=== PATIENT | female | born 1940 | race Caucasian/White ===

== ENCOUNTER → 2019-12-09 | Outpatient (CLI) | payer MEDICARE ==
--- NOTE | 2019-12-10 17:31 | ECHOF ---
Referral Reason:R01.1 Cardiac [place] MEASUREMENTS -------- HEIGHT: 162.6 cm WEIGHT: 60.3 kg BP: IVSd: 0.8 cm (0.6 - 1.1) LVIDd: 4.0 cm (3.9 - 5.3) LVPWd: 1.1 cm (0.6 - 1.1) IVSs: 1.4 cm LVIDs: 2.0 cm LVPWs: 1.7 cm LAESV Index (A-L): 19.76 ml/m Ao Diam: 2.3 cm (2.0 - 3.7) LA Diam: 2.6 cm (2.7 - 3.8) AV Cusp: 1.2 cm (1.5 - 2.6) EPSS: 0.9 cm MV E Jesus Manuel: 0.91 m/s MV DecT: 197 ms MV A Jesus Manuel: 1.14 m/s MV E/A Ratio: 0.80 AV maxP.33 mmHg AV meanP.96 mmHg AR PHT: 308 ms RAP: 5.00 mmHg RVSP: 40.69 mmHg MV EF SLOPE: 68.09 mm/s (70 - 150) MV EXCURSION: 10.93 mm (> 18.000) FINDINGS -------- Sinus rhythm. This was a technically good study. The left ventricular size is normal. There is mild concentric left ventricular hypertrophy. Overa ll left ventricular systolic function is normal with, an EF between 55 - 60 %. Increased LAP Grade 2 Diastolic Dysfunction. The right ventricle is normal in size. The left atrial size is normal. Normal LA size by volume 22+/-6 ml/m2. The right atrial size is normal. The aortic valve is trileaflet and appears structurally normal. There is mild aortic valve sclerosi s. Trace amount of aortic regurgitation. Peak/mean gradient across the Aortic Valve is 14.33mmHg / 9.96mmHg. The mitral valve is normal. The mitral valve leaflets are mildly thickened. Mild mitral regurgita tion is present. The tricuspid valve appears structurally normal. Mild tricuspid regurgitation present. There is m ild pulmonary hypertension. The right ventricular systolic pressure, as measured by Doppler, is 40. 69mmHg. There is no pulmonic regurgitation present. The aortic root size is normal. Normal inferior vena cava with normal inspiratory collapse consistent with estimated right atrial pre ssure of 5 mmHg. There is no pericardial effusion. CONCLUSIONS -------- 1. Sinus rhythm. 2. This was a technically good study. 3. The left ventricular size is normal. 4. There is mild concentric left ventricular hypertrophy. 5. Overall left ventricular systolic function is normal with, an EF between 55 - 60 %. 6. Increased LAP Grade 2 Diastolic Dysfunction. 7. The right ventricle is normal in size. 8. The left atrial size is normal. 9. Normal LA size by volume 22+/-6 ml/m2. 10. The right atrial size is normal. 11. The aortic valve is trileaflet and appears structurally normal. 12. There is mild aortic valve sclerosis. 13. Trace amount of aortic regurgitation. 14. Peak/mean gradient across the Aortic Valve is 14.33mmHg / 9.96mmHg. 15. The mitral valve is normal. 16. The mitral valve leaflets are mildly thickened. 17. Mild mitral regurgitation is present. 18. The tricuspid valve appears structurally normal. 19. Mild tricuspid regurgitation present. 20. There is mild pulmonary hypertension. 21. The right ventricular systolic pressure, as measured by Doppler, is 40.69mmHg. 22. There is no pulmonic regurgitation present. 23. The aortic root size is normal. 24. Normal inferior vena cava with normal inspiratory collapse consistent with estimated right atrial pressure of 5 mmHg. 25. There is no pericardial effusion. [employer] SUPERINTENDENT: Eve Jonas RDCS
== END | disposition home or self-care (01) ==
LOC: RADECHMAIN 11:42
PROVIDERS: ATTEND Family Medicine
DX: I08.1 Rheumatic disorders of both mitral and tricuspid valves (principal); I27.20 Pulmonary hypertension, unspecified
CPT/HCPCS: 93306

== ENCOUNTER → 2021-04-04 | Outpatient (CLI) | payer MEDICARE ==
--- NOTE | 2021-04-04 13:22 | MR ---
MR brain without contrast HISTORY: I 67.9 Multiplanar multisequence imaging through the brain, correlation to CT brain 04/25/2012. Patient's pre vious MRI is unavailable for correlation at the time of interpretation. There is restricted diffusion involving the radial aspect of the right occipital lobe, axial image #1 2. Multiple areas of encephalomalacia are present bilaterally with some associated gliosis, hyperinte nsity and inversion recovery T2-weighted sequences noted towards the watershed areas as well as conve xities. There is no hemorrhage or hydrocephalus. Cerebellopontine angles, corpus callosum, pituitary, cervical medullary junction are within normal limits. Right internal carotid artery is patent, suspe ct the left internal carotid arteries occluded, there is not a normal vascular flow void present at t his level. IMPRESSION: Subacute infarct medial right occipital lobe. Multiple bilateral chronic infarcts, left i nternal carotid artery occlusion
== END | disposition home or self-care (01) ==
LOC: RADMRIMAIN 10:16
PROVIDERS: ATTEND Psychiatry & Neurology Neurology
DX: G93.89 Other specified disorders of brain (principal); I65.23 Occlusion and stenosis of bilateral carotid arteries
CPT/HCPCS: 70551

== ENCOUNTER → 2021-04-29 | Outpatient (CLI) | payer MEDICARE ==
--- NOTE | 2021-04-29 14:41 | MR ---
EXAMINATION TYPE: MR angio head wo/neck wo/w con DATE OF EXAM: 04/29/2021 COMPARISON: 04/04/2021 HISTORY: Stenosis, CVA, weakness left side TECHNIQUE: Time of flight images focusing on the [place] were performed without contrast.. 2-D and 3-D postprocessing imaging is performed. FINDINGS: Motion degrades the images. There is encephalomalacia of the left occipital lobe. The intracranial right internal carotid artery is patent. There is patent right A1 and A2, M1 and M2 branches. The intracranial left internal carotid artery is completely occluded. Normal M1 and M2 and A1 and A2 branches are seen. The bilateral posterior inferior cerebellar arteries are patent. The upper vertebral arteries are pat ent and join to form a normal-appearing basilar artery. Bilateral P1 and P2 and posterior communicati ng arteries are patent. Bilateral superior cerebellar arteries are patent. The right common carotid artery arises normally from the right brachiocephalic artery and is unremark able and bifurcates normally into the right external carotid artery and internal carotid artery which are patent. The right vertebral artery arises normally from the right subclavian artery and is patent. The left common carotid artery is completely occluded beginning at the level of its origin at the aor tic arch through the bifurcation with occlusion of the entire left external carotid artery and left i nternal carotid artery through the [place]. The left vertebral artery arises normally from the left subclavian artery and is patent throughout it s course. Findings confirmed on 3-D imaging. IMPRESSION: 1. Occlusion of the left common carotid artery, internal carotid artery and external carotid arteries throughout their course. 2. Encephalomalacia of the left occipital lobe.
== END | disposition home or self-care (01) ==
LOC: RADMRIMAIN 10:39
PROVIDERS: ATTEND Psychiatry & Neurology Neurology
DX: I65.22 Occlusion and stenosis of left carotid artery (principal); G93.89 Other specified disorders of brain
CPT/HCPCS: 70544; 70549; A9585

== ENCOUNTER → 2021-08-27 | Outpatient (CLI) | payer MEDICARE ==
--- NOTE | 2021-08-27 15:48 | CT ---
EXAMINATION TYPE: CT lumbar spine wo con DATE OF EXAM: 08/27/2021 3:40 PM COMPARISON: None. HISTORY: Intervertebral disc degeneration, lumbar, pain, numbness LT leg. Hx lumbar spinal sx CT DLP: 415 mGycm Automated exposure control for dose reduction was used. Unenhanced CT of the lumbar spine was performed. Bone and soft tissue window settings are submitted as well as coronal and sagittal reconstructions. There are 5 lumbar-type vertebra. There is levoconvex scoliosis centered at L2 level. There is modera te to severe disc space narrowing with moderate spurring and vacuum disc phenomenon right L1-L2 and L 2-L3 levels. There is jccoqdiu-vt-poanvk disc space narrowing with vacuum disc phenomenon at left L4- L5 and L5-S1 levels. Slight grade 1 anterolisthesis L4 and L5 and grade 1 retrolisthesis of L1 on L2 and L2 on L3. Axial images at T12-L1 level are within normal limits. Axial images at the L1-L2 level show posterior mild/moderate broad-based disc bulge mildly effacing a nterior thecal sac, there is [id number] right-sided and anterior inferior neural foraminal narr owing. Axial images at the L2-L3 level show mild facet arthropathy and ligamentum flavum hypertrophy effacin g posterior lateral thecal sac, there is [id number] posterior spur disc complex effacing anteri or thecal sac. There is moderate right-sided neural foraminal narrowing. Axial images at the L3-L4 level show moderate to advanced facet arthropathy and ligament flavum hyper trophy effacing the social services assistant lateral thecal sac. There is broad base left paracentral disc protrusion e ffacing anterior thecal sac, there is moderate left and mild right-sided neural foraminal narrowing. Axial images at the L4-L5 level show moderate left greater than right facet arthropathy. There is bro ad-based left paracentral disc protrusion. There is effacement of the left lateral and left anterolat eral thecal sac. There is moderate to severe left-sided neural foraminal narrowing. Right sided neura l foramen is patent. Axial images at the L5-S1 level shows moderate facet arthropathy bilaterally. Spinal canal is preserv ed. Patent bilateral neural foramina. Mild to moderate calcified plaque of the aorta extends into branch vessels. Few diverticula in the le ft and proximal sigmoid colon are identified. IMPRESSION: Levoconvex scoliosis with multilevel degenerative changes in lumbar spine as detailed abo ve
== END | disposition home or self-care (01) ==
LOC: RADCTMAIN 15:15
PROVIDERS: ATTEND Family Medicine
DX: M51.36 Other intervertebral disc degeneration, lumbar region (principal); M41.86 Other forms of scoliosis, lumbar region
CPT/HCPCS: 72131

== ENCOUNTER 2022-01-03 14:40 | Emergency (ER) | payer MEDICARE ==
[2022-01-03] MEDS ORDERED: HYDROcodone/APAP 5-325MG 1 EACH TAB PO STA (16:04)
--- NOTE | 2022-01-03 16:11 | ED ---
General Adult HPI - General Chief complaint: Fall Stated complaint: Fall-L shoulder pain Time Seen by Provider: 01/03/22 16:00 Source: patient, family, RN notes reviewed, old records reviewed Mode of arrival: wheelchair Limitations: no limitations - History of Present Illness Initial comments: 81-year-old female alert and oriented, presents to the emergency room with complaints of falling today in the kitchen around 2pm. Patient states she does have a history of Parkinson's and has had frequent falls. She states she did not lose consciousness and did not hit her head. She did fall on her left arm and has pain with movement with significant bruising and an abrasion approximately 8 cm at shoulder. She also has an abrasion approximately 4 cm to the left temporal area. She denies any pain and no headache. Family at bedside states that she has had falls. She does not take any blood thinners. Family is concerned with patient's left arm pain. -: hour(s) (2) Location: left, upper extremity (shoulder) Quality: aching Consistency: intermittent Improves with: immobilization Worsens with: movement Associated Symptoms: other (abrasion to left episcopal) - Related Data Previous Rx's Medication Instructions Recorded HYDROcodone/APAP 5-325MG [[place] 1 tab PO Q6HR PRN 3 Days #12 tab 01/03/22 5-325] Allergies Allergy/AdvReac Type Severity Reaction Status Date / Time No Known Allergies Allergy Verified 01/03/22 14:59 Review of Systems ROS Statement: Those systems with pertinent positive or pertinent negative responses have been documented in the HPI. ROS Other: All systems not noted in ROS Statement are negative. Past Medical History Past Medical History: COPD, CVA/TIA, Hypertension History of Any Multi-Drug Resistant Organisms: None Reported Past Surgical History: Hysterectomy Additional Past Surgical History / Comment(s): cartoid arteries Past Psychological History: No Psychological Hx Reported Smoking Status: Never smoker Past Alcohol Use History: None Reported Past Drug Use History: None Reported General Exam Limitations: no limitations General appearance: alert, in no apparent distress Head exam: Present: other (4 cm abrasion to the left episcopal) Eye exam: Present: normal appearance, PERRL, EOMI. Absent: scleral icterus, conjunctival injection, nystagmus, periorbital swelling, periorbital tenderness ENT exam: Present: normal exam, mucous membranes moist Neck exam: Present: normal inspection, full ROM. Absent: tenderness, meningismus, lymphadenopathy, thyromegaly Respiratory exam: Present: normal lung sounds bilaterally. Absent: respiratory distress, wheezes, rales, rhonchi, stridor, chest wall tenderness, accessory muscle use, decreased breath sounds Cardiovascular Exam: Present: regular rate, normal rhythm GI/Abdominal exam: Present: soft. Absent: distended, tenderness Left Shoulder Exam: Present: tenderness, swelling, ecchymosis. Absent: tenderness over AC joint Upper Arm exam: Present: tenderness, swelling, abrasion (8 cm abrasion left upper arm), ecchymosis. Absent: full ROM Elbow exam: Present: normal inspection. Absent: tenderness Forearm Wrist exam: Present: normal inspection. Absent: tenderness Neuro motor exam: Present: wrist extension intact, thumb opposition intact, thumb IP flexion intact, thumb adduction intact, fingers 2-5 abduction intact Neurosensory exam: Present: radial nerve intact, ulnar nerve intact, median nerve intact Vascular: Present: normal capillary refill, radial pulse. Absent: vascular compromise Back exam: Present: normal inspection, full ROM. Absent: tenderness, CVA te nderness (R), CVA tenderness (L) Neurological exam: Present: alert, oriented X3 Expanded Patient oriented to: Present: person, place, time Speech: Present: fluid speech Cranial nerves: EOM's Intact: Normal, Gag Reflex: Normal, Tongue Deviation: Normal, Facial Sensation: Normal Cerebellar function: Heel to [place]: Normal Motor strength exam: RUE: 5, LUE: 5, RLE: 5, LLE: 5 Eye Response: (4) open spontaneously Motor Response: (6) obeys commands Verbal Response: (5) oriented Khushi Total: 15 Psychiatric exam: Present: normal affect, normal mood Skin exam: Present: warm, dry, normal color. Absent: cyanosis, diaphoretic, petechiae, pallor Course Vital Signs 01/03/22 01/03/22 15:00 16:50 Temperature 97.7 F Pulse Rate 62 60 Respiratory 20 18 Rate Blood Pressure 115/51 167/72 O2 Sat by Pulse 98 99 Oximetry Medical Decision Making - Medical Decision Making 81-year-old female alert and oriented presents after falling today in the kitchen onto her left arm while trying to put soup in the refrigerator. Patient states she does have a history of Parkinson's and has had frequent falls. She denies having any dizziness. She does not take any blood thinners but does take an aspirin a day. There is an abrasion to the left temporal area. There is also abrasions and bruising to her left shoulder. CT of the brain and C-spine show multiple bilateral cortical infarcts with cerebral atrophy. There is progression of the infarcts compared to old CT dated April 2012. There is no evidence of intracranial hemorrhage or mass effect. There is mild degenerative disc changes in the cervical spine but no fracture. X-ray of the shoulder shows a comminuted impacted humeral neck fracture with no dislocation. Patient is neurovascularly intact and has full range of motion of the elbow and wrist. Patient was placed in a sling and directed to follow up with orthopedics. She was given pain medication in the emergency room. Case discussed with Dr. Tiwari. Disposition Clinical Impression: Humeral fracture, Fall Disposition: HOME SELF-CARE Condition: Good Instructions (If sedation given, give patient instructions): Fall Prevention for Older Adults (ED), Proximal Humerus Fracture (ED) Additional Instructions: Rest, ice, wear sling until seen by orthopedics. You can take over the counter Motrin 400mg every 8 hours as needed for pain. You can take [place] as prescribed for severe pain as directed. Return to the emergency room with a new or concerning symptoms. Follow-up with your primary care doctor next week. Prescriptions: HYDROcodone/APAP 5-325MG [[place] 5-325] 1 tab PO Q6HR PRN 3 Days #12 tab PRN Reason: Pain Is patient prescribed a controlled substance at d/c from ED?: No When asked, does pt state using other controlled substances?: No If prescribed controlled substance>3 days was MAPS reviewed?: No If opioid is for acute pain is fill amount 7 days or less?: Yes If Rx opioid, was Start Talking consent form obtained?: Yes Referrals: Selwyn Reddy MD [Primary Care Provider] - 1-2 days Rahel Gonzalez DO [Doctor of Osteopathic Medicine] - 1-2 days Time of Disposition: 17:53
[2022-01-03 16:57] VITALS: RESP 18
[2022-01-03] MEDS ORDERED: BACITRACIN OINT 1 EACH PACKET TOPICAL ONE (17:27)
--- NOTE | 2022-01-03 17:41 | CT ---
EXAMINATION TYPE: CT brain lorie wo con DATE OF EXAM: 01/03/2022 COMPARISON: 04/25/2012 HISTORY: Fall. CT DLP: 1354.4 mGycm Automated exposure control for dose reduction was used. Images of the brain obtained without contrast. There is a 5 cm area of hypodensity left posterior temporal lobe. There is a 4 cm hypodensity left fr ontal lobe. There is large 8 x 4 cm area of hypodensity in the right posterior parietal lobe. There i s 3 cm hypodensity left parietal lobe cortex. There is no midline shift. There is no sign of intracra nial hemorrhage. Cervical vertebra have normal alignment. Posterior elements are intact. There is degenerative disc sp fatou narrowing at C5-6 with mild spurring. Facet joints are intact. There is multilevel hypertrophic c ervical facet arthropathy. The skull base is intact. There is normal aeration of the mastoid sinuses. IMPRESSION: Multiple bilateral cortical infarcts with cerebral atrophy. There is progression of the infarcts comp ared to old CT scan. No evidence of any significant new infarct. No evidence of intracranial hemorrha ge. No mass effect. Minor degenerative disc changes in the cervical spine. No fracture.
--- NOTE | 2022-01-03 17:42 | XR ---
EXAMINATION TYPE: XR shoulder complete LT DATE OF EXAM: 01/03/2022 COMPARISON: NONE HISTORY: Shoulder pain TECHNIQUE: 3 views FINDINGS: There is a comminuted impacted humeral neck fracture. There is no dislocation. Scapula is i ntact. There is approximate 8 mm of impaction. IMPRESSION: Acute impacted humeral neck fracture.
--- NOTE | 2022-01-03 17:46 | XR ---
EXAMINATION TYPE: XR humerus LT DATE OF EXAM: 01/03/2022 COMPARISON: NONE HISTORY: Fall. Pain TECHNIQUE: 3 view FINDINGS: There is comminuted impacted left humeral neck fracture. There is no dislocation. The elbow joint appears intact. There is no sign of elbow joint effusion. IMPRESSION: Acute impacted humeral neck fracture.
[2022-01-03 17:56] VITALS: BP 121/66; PULSE 62
[2022-01-03] MEDS ORDERED: ONDANSETRON 4 MG ODT STARTER PACK 2 TAB BTL PO STA (18:11)
[2022-01-03 18:44] VITALS: TEMP 97.8
== END 2022-01-03 18:44 | disposition home or self-care (01) ==
LOC: EC 14:40
DX: S42.212A Unspecified displaced fracture of surgical neck of left humerus, initial encounter for closed fracture (principal); I10 Essential (primary) hypertension; J44.9 Chronic obstructive pulmonary disease, unspecified; Z91.81 History of falling; Y93.89 Activity, other specified; Y92.000 Kitchen of unspecified non-institutional (private) residence as the place of occurrence of the external cause
CPT/HCPCS: 73030; 73060; 72125; 70450; 99284; S0119

== ENCOUNTER 2022-01-28 05:07 | Observation (INO) | payer MEDICARE ==
--- NOTE | 2022-01-28 05:44 | ED ---
Chest Pain HPI - General Chief Complaint: Chest Pain Stated Complaint: Chest Pain Time Seen by Provider: 01/28/22 05:40 Source: patient, EMS, RN notes reviewed, old records reviewed Mode of arrival: EMS Limitations: no limitations - History of Present Illness Initial Comments: This is a 81-year-old female with history of COPD TIA CVA hypertension and hi story of atherosclerosis with carotid endarterectomy coming with chest pain that woke her up from sleep today. Chest pain was significant anterior left sided heaviness with diaphoresis and shortness of breath. Pain did get improved with nitro per EMS. The patient remains pain-free upon arrival to the ER. No recent travel history no sick contacts no other significant complaints MD Complaint: chest pain -: hour(s) Onset: during rest, awoke with symptoms Pain Location: left chest Pain Radiation: none Severity: moderate Severity scale (1-10): 3 Quality: tightness Consistency: now resolved Improves With: nothing Worsens With: nothing Context: other (none) Anginal Symptoms: other (none) Other Symptoms: other (none) Treatments Prior to Arrival: none - Related Data Previous Rx's Medication Instructions Recorded HYDROcodone/APAP 5-325MG [[place] 1 tab PO Q6HR PRN 3 Days #12 tab 01/03/22 5-325] Allergies Allergy/AdvReac Type Severity Reaction Status Date / Time No Known Allergies Allergy Verified 01/03/22 14:59 Review of Systems ROS Statement: Those systems with pertinent positive or pertinent negative responses have been documented in the HPI. ROS Other: All systems not noted in ROS Statement are negative. EKG Findings - EKG Comments: EKG Findings:: EKG shows sinus rhythm 62 MA 225 QRS 100 QTc 402 Past Medical History Past Medical History: Atrial Fibrillation, COPD, CVA/TIA, Hypertension History of Any Multi-Drug Resistant Organisms: None Reported Past Surgical History: Hysterectomy Additional Past Surgical History / Comment(s): cartoid arteries Past Psychological History: No Psychological Hx Reported Smoking Status: Never smoker Past Alcohol Use History: None Reported Past Drug Use History: None Reported General Exam General appearance: alert, in no apparent distress Head exam: Present: atraumatic, normocephalic, normal inspection Eye exam: Present: normal appearance, PERRL, EOMI. Absent: scleral icterus, conjunctival injection, periorbital swelling ENT exam: Present: normal exam, mucous membranes moist Neck exam: Present: normal inspection. Absent: tenderness, meningismus, lymphadenopathy Respiratory exam: Present: normal lung sounds bilaterally. Absent: respiratory distress, wheezes, rales, rhonchi, stridor Cardiovascular Exam: Present: regular rate, normal rhythm, normal heart sounds. Absent: systolic murmur, diastolic murmur, rubs, gallop, clicks GI/Abdominal exam: Present: soft, normal bowel sounds. Absent: distended, tenderness, guarding, rebound, rigid Extremities exam: Present: normal inspection, full ROM, normal capillary refill. Absent: tenderness, pedal edema, joint swelling, calf tenderness Back exam: Present: normal inspection Neurological exam: Present: alert, oriented X3, CN II-XII intact Psychiatric exam: Present: normal affect, normal mood Skin exam: Present: warm, dry, intact, normal color. Absent: rash Course Vital Signs 01/28/22 05:18 Pulse Rate 66 Respiratory 18 Rate Blood Pressure 182/79 O2 Sat by Pulse 99 Oximetry - Reevaluation(s) Reevaluation #1: 01/28/22 06:50 Medical record is reviewed Reevaluation #2: 01/28/22 06:50 Patient's chest pain remains improved here in the ER Reevaluation #3: 01/28/22 06:50 Patient informed of results and questions answered - Consultations Consultation #1: Spoke with Dr. Reddy regarding admission he is agreeable Chest Pain MDM - MDM 81 female to the emergency department with history of atherosclerosis coming in with chest pain today. Chest pain with sweats that woke her up from sleep. Chest pain remains resolved after nitro the patient be admitted for chest pain observation Disposition Clinical Impression: Chest pain Disposition: ADMITTED IP TO THIS HOSP Condition: Undetermined Instructions (If sedation given, give patient instructions): Chest Pain (ED) Is patient prescribed a controlled substance at d/c from ED?: No Referrals: Selwyn Reddy MD [Primary Care Provider] - 1-2 days
[2022-01-28 06:17] LABS: Basophils # (A) 0.1 k/uL (0-0.2); Basophils % (A) 1 %; Eosinophils # (A) 0.3 k/uL (0-0.7); Eosinophils % (A) 2 %; HCT 34.3 % (34.0-46.0); HGB 11.4 gm/dL (11.4-16.0); Lymphocytes # (A) 2.7 k/uL (1.0-4.8); Lymphocytes % (A) 23 %; MCH 30.7 pg (25.0-35.0); MCHC 33.3 g/dL (31.0-37.0); MCV 92.1 fL (80.0-100.0); Mean Platelet Volume 7.7; Monocytes # (A) 0.9 k/uL (0-1.0); Monocytes % (A) 7 %; Neutrophils # (A) 7.5 k/uL (1.3-7.7); Neutrophils % (A) 65 %; Platelet Count 308 k/uL (150-450); RBC 3.73 m/uL (3.80-5.40); RDW 13.3 % (11.5-15.5); WBC 11.6 k/uL (3.8-10.6)
--- NOTE | 2022-01-28 06:22 | XR ---
EXAMINATION TYPE: XR chest 2V DATE OF EXAM: 01/28/2022 COMPARISON: NONE HISTORY: Chest pain TECHNIQUE: 2 views FINDINGS: Heart and mediastinum are normal. Lungs are clear. Diaphragm is normal. Bony thorax is inta ct. Thoracic aorta is atheromatous. IMPRESSION: No active cardiopulmonary disease.
[2022-01-28 06:27] LABS: Albumin 4.2 g/dL (3.5-5.0); INR 1.1 (<1.2); Magnesium 1.4 mg/dL (1.6-2.3); Partial Thromboplastin Time 23.9 sec (22.0-30.0); Potassium 4.1 mmol/L (3.5-5.1); Prothrombin Time 11.4 sec (9.0-12.0); Total Bilirubin 0.7 mg/dL (0.2-1.3); Total Protein 7.2 g/dL (6.3-8.2)
[2022-01-28] MEDS ORDERED: MORPHINE SULFATE 4 MG/ML SYRINGE IV PRN (06:52)
[2022-01-28] MEDS ORDERED: NITROGLYCERIN SL TABS 0.4 MG TAB SUBLINGUAL PRN (06:52)
[2022-01-28] MEDS ORDERED: ASPIRIN 81 MG PO STA (06:52)
--- NOTE | 2022-01-28 11:06 | P.CRDCN ---
History of Present Illness Consult date: 01/28/22 History of present illness: HISTORY OF PRESENT ILLNESS: This is a 81-year-old female with a past medical history significant for diabetes, hypothyroidism, and hyperlipidemia. 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 We have been asked to see the patient in consultation for chest pain. Patient examined at the bedside. The patient reports she recently fractured her left humerus. She reports that at 10 PM last night she began having chest discomfort. She also reports feeling slightly dizzy. She states the pain is worse with chest wall palpation. She is unsure if the pain is worse with deep inspiration. She denies any radiation of the pain. She denies any shortness of breath. * EKG reveals sinus mechanism with no signs of acute ischemia * Chest xray no active cardiopulmonary disease * Laboratory data: WBC 11.6. Hemoglobin 11.4. Platelet count 308. Sodium 137. Potassium 4.1. BUN 22. Creatinine 0.73. Magnesium 1.4. Troponin negative 2. * Current home cardiac medications include Crestor 20 mg at night, propanolol 60 g twice a day, aspirin 81 mg daily * Most recent echocardiogram obtained in 2019 revealed ejection fraction 55-60%, trace aortic regurgitation, mild MR, mild TR, and mild pulmonary hypertension REVIEW OF SYSTEMS: At the time of my exam: CONSTITUTIONAL: Denies fever or chills. HEENT: Denies blurred vision, vision changes, or eye pain. Denies hemoptysis CARDIOVASCULAR: Denies chest pain. Denies orthopnea. Denies PND. Denies palpitations RESPIRATORY: Denies shortness of breath. GASTROINTESTINAL: Denies abdominal pain. Denies nausea or vomiting. HEMATOLOGIC: Denies bleeding disorders. GENITOURINARY: Denies any blood in urine. SKIN: Denies pruitis. Denies rash. PHYSICAL EXAM: VITAL SIGNS: Reviewed. GENERAL: Well-developed in no acute distress. HEENT: Head is normocephalic. Pupils are equal, round. Sclerae anicteric. Mucous membranes of the mouth are moist. Neck supple. No JVD or thyromegaly LUNGS: Respirations even and unlabored. Lungs essentially clear to auscultation bilaterally. HEART: Regular rate and rhythm. S1 and S2 heard. Systolic murmur noted. ABDOMEN: Soft. Nondistended. Nontender. EXTREMITIES: Normal range of motion. No clubbing or cyanosis. Peripheral pulses intact. No lower extremity edema NEUROLOGIC: Awake and alert. Oriented x 3. ASSESSMENT: Chest pain, atypical, troponin negative 2 Recent left humerus fracture Diabetes Hypothyroidism Hyperlipidemia Hypertension PLAN: An acute coronary event has been ruled out Obtain 2-D echo to assess cardiac structure and function Resume home cardiac mutations Add lisinopril 10 mg daily for optimal blood pressure control Obtain d-dimer Further recommendations for inpatient course Nurse practitioner note has been reviewed by physician. Signing provider agrees with the documented findings, assessment, and plan of care. Past Medical History Past Medical History: Atrial Fibrillation, COPD, CVA/TIA, Hypertension History of Any Multi-Drug Resistant Organisms: None Reported Past Surgical History: Hysterectomy Additional Past Surgical History / Comment(s): cartoid arteries Past Psychological History: No Psychological Hx Reported Smoking Status: Never smoker Past Alcohol Use History: None Reported Past Drug Use History: None Reported Medications and Allergies Home Medications Medication Instructions Recorded Confirmed Type ALPRAZolam [Xanax] 0.25 mg PO DAILY PRN 01/28/22 01/28/22 History Aspirin EC [Ecotrin Low Dose] 81 mg PO DAILY 01/28/22 01/28/22 History Carbidopa-Levodopa 10-100 mg 1 tab PO QID 01/28/22 01/28/22 History [Sinemet 10-100] Diphenox-Atrop 2.5-0.025 mg 1 tab PO TID 01/28/22 01/28/22 History [Lomotil] Escitalopram [Lexapro] 10 mg PO DAILY 01/28/22 01/28/22 History HYDROcodone/APAP 5-325MG [[place] 1 tab PO Q4HR PRN 01/28/22 01/28/22 History 5-325] Levothyroxine Sodium [Synthroid] 88 mcg PO DAILY 01/28/22 01/28/22 History Montelukast [Singulair] 10 mg PO DAILY 01/28/22 01/28/22 History Naproxen 500 mg PO BID PRN 01/28/22 01/28/22 History Propranolol HCl 60 mg PO BID 01/28/22 01/28/22 History Rosuvastatin [Crestor] 20 mg PO HS 01/28/22 01/28/22 History metFORMIN HCL 500 mg PO BID 01/28/22 01/28/22 History Allergies Allergy/AdvReac Type Severity Reaction Status Date / Time No Known Allergies Allergy Verified 01/28/22 07:29 Physical Exam Vitals: Vital Signs Pulse Resp BP Pulse Ox 01/28/22 06:25 66 18 169/54 97 01/28/22 05:18 66 18 182/79 99 Intake and Output 01/27/22 01/28/22 01/28/22 22:59 06:59 14:59 Other: Weight 56.699 kg Results 01/28/22 05:51 01/28/22 05:51 Cardiac Enzymes 01/28/22 01/28/22 01/28/22 Range/Units 05:51 05:51 08:43 AST 32 (14-36) U/L Troponin I <0.012 <0.012 (0.000-0.034) ng/mL Coagulation 01/28/22 Range/Units 05:51 PT 11.4 (9.0-12.0) sec APTT 23.9 (22.0-30.0) sec CBC 01/28/22 Range/Units 05:51 WBC 11.6 H (3.8-10.6) k/uL RBC 3.73 L (3.80-5.40) m/uL Hgb 11.4 (11.4-16.0) gm/dL Hct 34.3 (34.0-46.0) % Plt Count 308 (150-450) k/uL Comprehensive Metabolic Panel 01/28/22 Range/Units 05:51 Sodium 137 (137-145) mmol/L Potassium 4.1 (3.5-5.1) mmol/L Chloride 103 (98-107) mmol/L Carbon Dioxide 26 (22-30) mmol/L BUN 22 H (7-17) mg/dL Creatinine 0.73 (0.52-1.04) mg/dL Glucose 107 H (74-99) mg/dL Calcium 10.0 (8.4-10.2) mg/dL AST 32 (14-36) U/L ALT 16 (4-34) U/L Alkaline Phosphatase 87 (38-126) U/L Total Protein 7.2 (6.3-8.2) g/dL Albumin 4.2 (3.5-5.0) g/dL Current Medications Generic Name Dose Route Start Last Admin Trade Name Freq PRN Reason Stop Dose Admin Aspirin 81 mg 01/28/22 09:15 Aspirin 81 Mg PO DAILY [facility] Atorvastatin Calcium 40 mg 01/28/22 21:00 Atorvastatin 40 Mg Tab PO HS [facility] Sodium Chloride 1,000 mls @ 20 mls/hr 01/28/22 07:00 Saline 0.9% IV 01/29/22 07:01 .Q24H [facility] Lisinopril 10 mg 01/28/22 09:15 Lisinopril 10 Mg Tab PO DAILY [facility] Morphine Sulfate 4 mg 01/28/22 06:52 Morphine Sulfate 4 Mg/Ml Syringe IV Q4HR PRN Chest Pain Nitroglycerin 0.4 mg 01/28/22 06:52 Nitroglycerin Sl Tabs 0.4 Mg Tab SUBLINGUAL Q5M PRN Chest Pain Propranolol HCl 60 mg 01/28/22 21:00 Propranolol 20 Mg Tab PO BID [facility] Sodium Chloride 10 ml 01/29/22 09:00 Sodium Chloride 0.9% Flush 10 Ml Syringe IV Q12HR [facility] Sodium Chloride 10 ml 01/29/22 06:55 Sodium Chloride 0.9% Flush 10 Ml Syringe IV DIRECTED PRN FLUSH Intake and Output 01/27/22 01/28/22 01/28/22 22:59 06:59 14:59 Other: Weight 56.699 kg 01/28/22 05:51 01/28/22 05:51
[2022-01-28] MEDS ORDERED: ALPRAZolam 0.25 MG TAB PO PRN (11:26)
[2022-01-28] MEDS: CARBIDOPA-LEVODOPA 10-100 MG 1 EACH TAB PO SCH ×3 (12:03→22:13)
[2022-01-28] MEDS: lisinopriL 10 MG TAB PO SCH (12:04)
[2022-01-28] MEDS: ASPIRIN 81 MG PO SCH (12:04)
[2022-01-28 14:06] VITALS: RESP 16
[2022-01-28] MEDS: SODIUM CHLORIDE 0.9% 1,000 ML IV SCH (14:12)
--- NOTE | 2022-01-28 14:19 | CT ---
EXAMINATION TYPE: CT angio chest DATE OF EXAM: 01/28/2022 COMPARISON: Chest x-ray earlier today HISTORY: r/o PE, elevated d dimer. Shortness of breath. CT DLP: 343 mGycm. Automated Exposure Control for Dose Reduction was Utilized. CONTRAST: CTA scan of the thorax is performed with IV Contrast, patient injected with 100 mL of Isovue 370, pul monary embolism protocol. MIP Images are created on CT scanner and reviewed. FINDINGS: LUNGS: Elevated left hemidiaphragm is redemonstrated. Some dependent atelectasis in the bilateral low er lobes. Mild posterior bibasilar linear scarring and/or atelectasis. Mild biapical pleural/parenchy mal scarring. No pleural effusion or pneumothorax seen bilaterally. No suspicious pulmonary nodules o r masses. MEDIASTINUM: There is satisfactory enhancement of the pulmonary artery and its branches, there is no CT evidence for pulmonary embolism. Prominent right and left pulmonary arteries suggesting underlying pulmonary artery hypertension. Satisfactory enhancement of the aorta without aneurysm or dissection. There is significant narrowing and eventual occlusion of the left common carotid artery shortly afte r its origin. Findings correlate with MRA neck study April 29, 2021. There are no greater than 1 cm hi lar or mediastinal lymph nodes. No cardiomegaly or pericardial effusion is seen. OTHER: Slight scoliotic curvature. Small hemangioma involving the left T12 vertebra thought present. IMPRESSION: No CT evidence for acute pulmonary embolism. No suspicious acute pulmonary process.
[2022-01-28] MEDS ORDERED: DIPHENOX-ATROP 2.5-0.025 MG 1 EACH TAB PO PRN (16:09)
[2022-01-28] MEDS: metFORMIN 500 MG TAB PO SCH (16:12)
[2022-01-28] MEDS: HYDROcodone/APAP 5-325MG 1 EACH TAB PO PRN (17:43)
[2022-01-28 17:50] LABS: Glucose,Whole Blood 149 mg/dL (75-99)
[2022-01-28] MEDS ORDERED: ATORVASTATIN 40 MG TAB PO SCH (21:00)
--- NOTE | 2022-01-28 21:59 | CT ---
EXAMINATION TYPE: CT brain wo con DATE OF EXAM: 01/28/2022 COMPARISON: 01/03/2022 HISTORY: headaches CT DLP: 1012.7 mGycm Automated exposure control for dose reduction was used. There is extensive hypodensity in the periventricular white matter. There is cortical hypodensity lef t frontal lobe and right parietal lobe and left posterior temporoparietal lobe related to multiple ol d infarcts. There is no mass effect or midline shift. There is no sign of intracranial hemorrhage. Th e calvarium is intact. Skull base is intact. Cerebellum is intact. 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 No acute intracranial abnormality. No change.
[2022-01-28] MEDS: PROPRANOLOL 20 MG TAB PO SCH (22:13)
[2022-01-28] MEDS: INSULIN ASPART (NovoLOG) 100 UNIT/ML VIAL SQ SCH (22:13)
[2022-01-28 22:14] LABS: Glucose,Whole Blood 119 mg/dL (75-99)
--- NOTE | 2022-01-28 22:32 | P.HPIM ---
History of Present Illness H&P Date: 01/28/22 Chief Complaint: Chest pain I'm rounding for Dr. Selwyn Reddy. This is a 81-year-old patient of Dr. Selwyn Reddy. Chronic stable medical conditions include cognitive impairment, diabetes, hypertension, hyperlipidemia, hypothyroid, Parkinson's disease, some left-sided weakness, recent left humerus fracture left the left arm in a sling. At her baseline uses a walker. Patient presents with chest pressure she describes in the upper part of the chest. Lasted from good 3 hours. My shortness of breath. Some dizziness. No perspiration. Had a significant associated headache that resolved. No precipitating factor. No radiation. Patient's activity is limited does use a walker. Review of systems: GEN.: Tired EYES: None HEENT: Decreased hearing NECK: None RESPIRATORY: None CARDIOVASCULAR: [As above GASTROINTESTINAL: None GENITOURINARY: None MUSCULOSKELETAL: Joint pains, left arm in a sling LYMPHATICS: None HEMATOLOGICAL: None PSYCHIATRY: Forgetful NEUROLOGICAL: [Does use a walker Past medical history to include: Atrial fibrillation, stroke, dementia, diabetes, hyperlipidemia, hypertension, osteomyelitis, Parkinson's disease, left humerus fracture anxiety Social history: Lives alone. Does have a walker. Did alcohol in the past stopped over 20 years ago. Nonsmoker. Family history: Diabetes, alcoholism Physical examination: VITAL SIGNS: 98, 68, 16, 123/80, 97% room air GENERAL: BMI 21.5, sitting edge answer bed, awake, slightly anxious. EYES: Pupils equal. Conjunctiva normal. HEENT: External appearance of nose and ears normal, oral cavity grossly normal. Decreased hearing NECK: JVD not raised; masses not palpable. HEART: First and second heart sounds are normal; no edema. LUNGS: Respiratory rate normal; clear to auscultation. ABDOMEN: Soft, nontender, liver spleen not palpable, no masses palpable. PSYCH: Able to answer simple questions. Slightly anxiousl. MUSCULOSKELETAL:No Clubbing/cyanosis;muscles-grossly intact. Evidence of OA in multiple joints. Left arm in a sling. NEUROLOGICAL: Cranial nerves grossly intact; no facial asymmetry, power and sensation grossly intact. LYMPHATICS: No lymph nodes palpable in the axilla and neck INVESTIGATIONS, reviewed in the clinical context: White count 11.6 hemoglobin 11.4 platelets 308 sodium 137 potassium 4.1 creatinine 0.73 Troponin I less than 0.012 EKG tracing personally reviewed by me-normal sinus rhythm. Minimal ST segment changes. Chest x-ray film personally reviewed by me: Some chronic changes CT angiogram chest: Elevated left hemidiaphragm. Some atelectasis. Negative for PE. Assessment and plan: -Possible unstable angina with multiple risk factors. Telemetry. Negative troponin. Cardiology consulted. 2-D echocardiogram. Aspirin. 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 Follow Accu-Cheks -Essential hypertension Zestril 10 mg a day. Propranolol 60 mg twice a day -Anxiety depression otherwise specified Lexapro 10 mg a day -Idiopathic Parkinson disorder Sinemet 10/100 one tablet 4 times a day -Hypothyroid Synthroid 88 g a day Resume home medications. Follow Accu-Cheks. Care was discussed with the granddaughter the bedside. 2-D echocardiogram pending. Serial cardiac enzymes. Past Medical History Past Medical History: Atrial Fibrillation, CVA/TIA, Dementia, Diabetes Mellitus, Hyperlipidemia, Hypertension, Musculoskeletal Disorder, Thyroid Disorder, Vascular Disorder Additional Past Medical History / Comment(s): NIDDM type II, parkinson's disesase, murmur, multiple CVAs/some L sided weakness, told strokes caused some dementia, PVD/bilateral caratid surgery, hypothyroid, recent L humurus fracture (pt is L handed). History of Any Multi-Drug Resistant Organisms: None Reported Past Surgical History: Back Surgery, Hysterectomy Additional Past Surgical History / Comment(s): Bilateral caratid endartectomies, back surgery, cataract removals. Past Anesthesia/Blood Transfusion Reactions: No Reported Reaction Smoking Status: Never smoker - Past Family History Father Additional Family Medical History / Comment(s): Alcoholism Mother Family Medical History: Diabetes Mellitus Additional Family Medical History / Comment(s): Mother when pt was 16 yrs old. Medications and Allergies Home Medications Medication Instructions Recorded Confirmed Type ALPRAZolam [Xanax] 0.25 mg PO DAILY PRN 01/28/22 01/28/22 History Aspirin EC [Ecotrin Low Dose] 81 mg PO DAILY 01/28/22 01/28/22 History Carbidopa-Levodopa 10-100 mg 1 tab PO QID 01/28/22 01/28/22 History [Sinemet 10-100] Diphenox-Atrop 2.5-0.025 mg 1 tab PO TID 01/28/22 01/28/22 History [Lomotil] Escitalopram [Lexapro] 10 mg PO DAILY 01/28/22 01/28/22 History HYDROcodone/APAP 5-325MG [[place] 1 tab PO Q4HR PRN 01/28/22 01/28/22 History 5-325] Levothyroxine Sodium [Synthroid] 88 mcg PO DAILY 01/28/22 01/28/22 History Montelukast [Singulair] 10 mg PO DAILY 01/28/22 01/28/22 History Naproxen 500 mg PO BID PRN 01/28/22 01/28/22 History Propranolol HCl 60 mg PO BID 01/28/22 01/28/22 History Rosuvastatin [Crestor] 20 mg PO HS 01/28/22 01/28/22 History metFORMIN HCL 500 mg PO BID 01/28/22 01/28/22 History Allergies Allergy/AdvReac Type Severity Reaction Status Date / Time No Known Allergies Allergy Verified 01/28/22 07:29 Physical Exam Vitals: Vital Signs Temp Pulse Pulse Resp BP BP Pulse Ox 01/28/22 14:05 98.0 F 68 16 123/80 97 01/28/22 12:19 74 18 151/61 99 01/28/22 06:25 66 18 169/54 97 01/28/22 05:18 66 18 182/79 99 Intake and Output 01/28/22 01/28/22 01/28/22 06:59 14:59 22:59 Other: # Voids 1 Weight 56.699 kg 56.699 kg Results CBC & Chem 7: 01/28/22 05:51 01/28/22 05:51 Labs: Abnormal Lab Results - Last 24 Hours (Table) 01/28/22 01/28/22 01/28/22 Range/Units 05:51 05:51 05:51 WBC 11.6 H (3.8-10.6) k/uL RBC 3.73 L (3.80-5.40) m/uL D-Dimer 3.60 H (<0.60) mg/L FEU BUN 22 H (7-17) mg/dL Glucose 107 H (74-99) mg/dL POC Glucose (mg/dL) (75-99) mg/dL Magnesium 1.4 L (1.6-2.3) mg/dL 01/28/22 01/28/22 Range/Units 17:49 22:12 WBC (3.8-10.6) k/uL RBC (3.80-5.40) m/uL D-Dimer (<0.60) mg/L FEU BUN (7-17) mg/dL Glucose (74-99) mg/dL POC Glucose (mg/dL) 149 H 119 H (75-99) mg/dL Magnesium (1.6-2.3) mg/dL Thrombosis Risk Factor Assmnt - Choose All That Apply Any of the Below Risk Factors Present?: Yes Other Risk Factors: Yes Each Risk Factor Represents 3 Points: Age 75 years or older Other congenital or acquired thrombophilia - If yes, enter type in comment: No Thrombosis Risk Factor Assessment Total Risk Factor Score: 3 Thrombosis Risk Factor Assessment Level: Moderate Risk
[2022-01-29] MEDS ORDERED: LEVOTHYROXINE 88 MCG TAB PO SCH (06:30)
[2022-01-29] MEDS: INSULIN ASPART (NovoLOG) 100 UNIT/ML VIAL SQ SCH ×2 (07:33→13:32)
[2022-01-29] MEDS: SODIUM CHLORIDE 0.9% 1,000 ML IV SCH (07:33)
[2022-01-29 07:40] LABS: Glucose,Whole Blood 113 mg/dL (75-99)
[2022-01-29] MEDS: HYDROcodone/APAP 5-325MG 1 EACH TAB PO PRN ×2 (07:45→13:35)
[2022-01-29] MEDS: CARBIDOPA-LEVODOPA 10-100 MG 1 EACH TAB PO SCH ×2 (07:45→13:35)
[2022-01-29] MEDS: ASPIRIN 81 MG PO SCH (07:45)
[2022-01-29] MEDS: PROPRANOLOL 20 MG TAB PO SCH (07:45)
[2022-01-29] MEDS: metFORMIN 500 MG TAB PO SCH (07:46)
[2022-01-29] MEDS: lisinopriL 10 MG TAB PO SCH (07:46)
[2022-01-29 08:26] VITALS: BP 124/63; PULSE 77; TEMP 97.7
[2022-01-29] MEDS ORDERED: ASPIRIN 325 MG TAB PO SCH (09:00)
[2022-01-29] MEDS ORDERED: MONTELUKAST 10 MG TAB PO SCH (09:00)
[2022-01-29] MEDS ORDERED: ESCITALOPRAM 10 MG TAB PO SCH (09:00)
--- NOTE | 2022-01-29 11:12 | ECHOF ---
Referral Reason: MEASUREMENTS -------- HEIGHT: 162.6 cm WEIGHT: 56.7 kg BP: IVSd: 0.9 cm (0.6 - 1.1) LVIDd: 2.5 cm (3.9 - 5.3) LVPWd: 0.9 cm (0.6 - 1.1) EDV(Teich): 23 ml IVSs: 1.4 cm LVIDs: 2.0 cm LVPWs: 1.1 cm %IVS Thck: 56 % ESV(Teich): 12 ml EF(Teich): 46 % %FS: 21 % SV(Teich): 10 ml EPSS: 1.8 cm MV E Jesus Manuel: 0.65 m/s MV DecT: 137 ms MV Dec Caroline: 4.7 m/s MV A Jesus Manuel: 1.11 m/s MV E/A Ratio: 0.59 MV PHT: 40 ms MR Vmax: 1.62 m/s MR maxP.50 mmHg AV Vmax: 0.81 m/s AV maxP.62 mmHg TR Vmax: 1.74 m/s TR maxP.14 mmHg RAP: 5.00 mmHg RVSP: 17.14 mmHg MV EF SLOPE: 41.03 mm/s (70 - 150) MV EXCURSION: 13.88 mm (> 18.000) FINDINGS -------- This was a technically difficult study with suboptimal views. Pt has broken left clavicle and is in a sling. The left ventricular size is normal. Left ventricular wall thickness is normal. Overall left vent ricular systolic function is normal with, an EF between 55 - 60 %. The right ventricle is normal in size. The left atrial size is normal. The right atrial size is normal. The aortic valve is trileaflet and appears structurally normal. The mitral valve is normal. There is trace mitral regurgitation. The tricuspid valve appears structurally normal. Trace tricuspid regurgitation present. Right alicia tricular systolic pressure is normal at < 35 mmHg. There is no pulmonic regurgitation present. The aortic root size is normal. Normal inferior vena cava with normal inspiratory collapse consistent with estimated right atrial pre ssure of 5 mmHg. There is no pericardial effusion. CONCLUSIONS -------- 1. Pt has broken left clavicle and is in a sling. 2. The left ventricular size is normal. 3. Left ventricular wall thickness is normal. 4. Overall left ventricular systolic function is normal with, an EF between 55 - 60 %. 5. There is trace mitral regurgitation. 6. Trace tricuspid regurgitation present. 7. There is no pericardial effusion. MANAGER LAUNDRY: Eve Jonas RDCS
--- NOTE | 2022-01-29 11:12 | P.PN ---
Subjective Progress Note Date: 01/29/22 HISTORY OF PRESENT ILLNESS: This is a 81-year-old female with a past medical history significant for diabetes, hypothyroidism, and hyperlipidemia. 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 We have been asked to see the patient in consultation for chest pain. Patient examined at the bedside. The patient reports she recently fractured her left humerus. She reports that at 10 PM last night she began having chest discomfort. She also reports feeling slightly dizzy. She states the pain is worse with chest wall palpation. She is unsure if the pain is worse with deep inspiration. She denies any radiation of the pain. She denies any shortness of breath. * EKG reveals sinus mechanism with no signs of acute ischemia * Chest xray no active cardiopulmonary disease * Laboratory data: WBC 11.6. Hemoglobin 11.4. Platelet count 308. Sodium 137. Potassium 4.1. BUN 22. Creatinine 0.73. Magnesium 1.4. Troponin negative 2. * Current home cardiac medications include Crestor 20 mg at night, propanolol 60 g twice a day, aspirin 81 mg daily * Most recent echocardiogram obtained in 2019 revealed ejection fraction 55-60%, trace aortic regurgitation, mild MR, mild TR, and mild pulmonary hypertension 01/29/2022 Patient examined this morning at the bedside. She denies chest pain or pressure. Denies SOB. CTA negative for PE. Dr. Pacheco reviewed echo and reports preserved LV function. PHYSICAL EXAM: VITAL SIGNS: Reviewed. GENERAL: Well-developed in no acute distress. HEENT: Head is normocephalic. Pupils are equal, round. Sclerae anicteric. Mucous membranes of the mouth are moist. Neck supple. No JVD or thyromegaly LUNGS: Respirations even and unlabored. Lungs essentially clear to auscultation bilaterally. HEART: Regular rate and rhythm. S1 and S2 heard. Systolic murmur noted. ABDOMEN: Soft. Nondistended. Nontender. EXTREMITIES: Normal range of motion. No clubbing or cyanosis. Peripheral pulses intact. No lower extremity edema NEUROLOGIC: Awake and alert. Oriented x 3. ASSESSMENT: Chest pain, atypical, troponin negative 2 Recent left humerus fracture Diabetes Hypothyroidism Hyperlipidemia Hypertension PLAN: Continue current cardiac medications Patient is stable from a cardiac standpoint We will sign off. Please reconsult if needed. Nurse practitioner note has been reviewed by physician. Signing provider agrees with the documented findings, assessment, and plan of care. Objective - Vital Signs Vital signs: Vital Signs Temp 97.7 F 01/29/22 07:29 Pulse 77 01/29/22 08:00 Resp 16 01/29/22 08:00 BP 124/63 01/29/22 07:29 Pulse Ox 100 01/29/22 07:29 Intake & Output 01/28/22 01/29/22 01/29/22 18:59 06:59 18:59 Weight 56.699 kg Other: Voiding Method Toilet # Voids 1 1 - Labs CBC & Chem 7: 01/28/22 05:51 01/28/22 05:51 Labs: Abnormal Lab Results - Last 24 Hours (Table) 01/28/22 01/28/22 01/29/22 Range/Units 17:49 22:12 07:27 POC Glucose (mg/dL) 149 H 119 H 113 H (75-99) mg/dL
[2022-01-29 12:06] LABS: Glucose,Whole Blood 206 mg/dL (75-99)
--- NOTE | 2022-01-29 14:27 | P.DS ---
Providers Date of admission: 01/28/22 06:52 Expected date of discharge: 01/29/22 Attending physician: Selwyn Reddy [facility] Course: Chief Complaint: Chest pain I'm rounding for Dr. Selwyn Reddy. This is a 81-year-old patient of Dr. Selwyn Reddy. Chronic stable medical conditions include cognitive impairment, diabetes, hypertension, hyperlipidemia, hypothyroid, Parkinson's disease, some left-sided weakness, recent left humerus fracture left the left arm in a sling. At her baseline uses a walker. Patient presents with chest pressure she describes in the upper part of the chest. Lasted from good 3 hours. My shortness of breath. Some dizziness. No perspiration. Had a significant associated headache that resolved. No precipitating factor. No radiation. Patient's activity is limited does use a walker. Today: No further episodes of chest pain. Seen by cardiology. Probably muscular skeletal. Discussed with daughter the bedside. CT brain: Multiple old infarcts Past medical history to include: Atrial fibrillation, stroke, dementia, diabetes, hyperlipidemia, hypertension, osteomyelitis, Parkinson's disease, left humerus fracture anxiety Social history: Lives alone. Does have a walker. Did alcohol in the past stopped over 20 years ago. Nonsmoker. Family history: Diabetes, alcoholism Physical examination: VITAL SIGNS: 97.7, 77, 16, 124/63, 100% room air GENERAL: Sitting up in a chair, awake, comfortable EYES: Pupils equal. Conjunctiva normal. HEENT: External appearance of nose and ears normal, oral cavity grossly normal. Decreased hearing NECK: JVD not raised; masses not palpable. HEART: First and second heart sounds are normal; no edema. LUNGS: Respiratory rate normal; clear to auscultation. ABDOMEN: Soft, nontender, liver spleen not palpable, no masses palpable. PSYCH: Able to answer simple questions. Slightly anxiousl. MUSCULOSKELETAL:No Clubbing/cyanosis;muscles-grossly intact. Evidence of OA in multiple joints. Left arm in a sling. NEUROLOGICAL: Cranial nerves grossly intact; no facial asymmetry, power and sensation grossly intact. INVESTIGATIONS, reviewed in the clinical context: CT brain: Multiple old infarcts 2-D echocardiogram: EF 55-60%. White count 11.6 hemoglobin 11.4 platelets 308 sodium 137 potassium 4.1 creatinine 0.73 Troponin I less than 0.012 EKG tracing personally reviewed by me-normal sinus rhythm. Minimal ST segment changes. Chest x-ray film personally reviewed by me: Some chronic changes CT angiogram chest: Elevated left hemidiaphragm. Some atelectasis. Negative for PE. 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 Follow Accu-Cheks -Essential hypertension Zestril 10 mg a day. Propranolol 60 mg twice a day -Anxiety depression otherwise specified Lexapro 10 mg a day -Idiopathic Parkinson disorder Sinemet 10/100 one tablet 4 times a day -Hypothyroid Synthroid 88 g a day Disposition: Home Plan - Discharge Summary Discharge Rx Participant: No New Discharge Prescriptions: New lisinopriL [Zestril] 10 mg PO DAILY #30 tab Continue ALPRAZolam [Xanax] 0.25 mg PO DAILY PRN PRN Reason: Anxiety Aspirin EC [Ecotrin Low Dose] 81 mg PO DAILY Escitalopram [Lexapro] 10 mg PO DAILY Levothyroxine Sodium [Synthroid] 88 mcg PO DAILY metFORMIN HCL 500 mg PO BID Montelukast [Singulair] 10 mg PO DAILY Rosuvastatin [Crestor] 20 mg PO HS Carbidopa-Levodopa 10-100 mg [Sinemet 10-100 mg] 1 tab PO QID Diphenox-Atrop 2.5-0.025 mg [Lomotil] 1 tab PO TID Naproxen 500 mg PO BID PRN PRN Reason: Pain Propranolol HCl 60 mg PO BID HYDROcodone/APAP 5-325MG [[place] 5-325] 1 tab PO Q4HR PRN PRN Reason: Pain Discharge Medication List ALPRAZolam [Xanax] 0.25 mg PO DAILY PRN 01/28/22 [History] Aspirin EC [Ecotrin Low Dose] 81 mg PO DAILY 01/28/22 [History] Carbidopa-Levodopa 10-100 mg [Sinemet 10-100 mg] 1 tab PO QID 01/28/22 [History] Diphenox-Atrop 2.5-0.025 mg [Lomotil] 1 tab PO TID 01/28/22 [History] Escitalopram [Lexapro] 10 mg PO DAILY 01/28/22 [History] HYDROcodone/APAP 5-325MG [[place] 5-325] 1 tab PO Q4HR PRN 01/28/22 [History] Levothyroxine Sodium [Synthroid] 88 mcg PO DAILY 01/28/22 [History] Montelukast [Singulair] 10 mg PO DAILY 01/28/22 [History] Naproxen 500 mg PO BID PRN 01/28/22 [History] Propranolol HCl 60 mg PO BID 01/28/22 [History] Rosuvastatin [Crestor] 20 mg PO HS 01/28/22 [History] metFORMIN HCL 500 mg PO BID 01/28/22 [History] lisinopriL [Zestril] 10 mg PO DAILY #30 tab 01/29/22 [Rx] Follow up Appointment(s)/Referral(s): Tomas Pacheco MD [STAFF PHYSICIAN] - 3 Weeks (Office will call with appointment time and date.) Selwyn Reddy MD [Primary Care Provider] - 1-2 days [facility], [NON-STAFF] - 1-2 Days Patient Instructions/Handouts: Chest Pain (ED) Discharge Disposition: HOME SELF-CARE
[2022-01-29 14:30] LABS: Chol/HDL Ratio 2.73 Ratio
== END 2022-01-29 13:50 | disposition home or self-care (01) ==
LOC: EC 05:07 → 6NMEDSUR 06:52
PROVIDERS: ADMIT Family Medicine; ATTEND Family Medicine
DX: R07.89 Other chest pain (principal); I48.91 Unspecified atrial fibrillation; J44.9 Chronic obstructive pulmonary disease, unspecified; I10 Essential (primary) hypertension; E03.9 Hypothyroidism, unspecified; I69.311 Memory deficit following cerebral infarction; G20 Parkinson's disease; F02.80 Dementia in other diseases classified elsewhere, unspecified severity, without behavioral disturbance, psychotic disturbance, mood disturbance, and anxiety; F01.50 Vascular dementia, unspecified severity, without behavioral disturbance, psychotic disturbance, mood disturbance, and anxiety; E78.5 Hyperlipidemia, unspecified; E11.9 Type 2 diabetes mellitus without complications; R53.1 Weakness; M86.9 Osteomyelitis, unspecified; I08.1 Rheumatic disorders of both mitral and tricuspid valves; R51.9 Headache, unspecified; F41.9 Anxiety disorder, unspecified; R26.9 Unspecified abnormalities of gait and mobility; Z79.84 Long term (current) use of oral hypoglycemic drugs; Z79.82 Long term (current) use of aspirin; Z79.890 Hormone replacement therapy; Z79.899 Other long term (current) drug therapy; Z90.710 Acquired absence of both cervix and uterus; Z98.41 Cataract extraction status, right eye; Z98.42 Cataract extraction status, left eye; Z96.1 Presence of intraocular lens; Z98.890 Other specified postprocedural states; Z81.1 Family history of alcohol abuse and dependence; Z83.3 Family history of diabetes mellitus
CPT/HCPCS: 99285; 96374; 36415; 93005; 85379; 83880; 80061; 80053; 83735; 84484; 85025; 85610; 85730; 71046; 70450; 71275; G0378 ×2; C8929; J2270; Q9967; 93306

== ENCOUNTER 2024-01-20 12:35 | Emergency (ER) | payer MEDICARE ==
--- NOTE | 2024-01-20 12:53 | ED ---
General Adult HPI - General Chief complaint: Extremity Injury, Lower Stated complaint: L Hip Pain Time Seen by Provider: 01/20/24 12:45 Source: patient, RN notes reviewed, old records reviewed Mode of arrival: EMS Limitations: no limitations - History of Present Illness Initial comments: This is an 83-year-old female who presents to the emergency department stating that 2 days ago she slipped off the toilet and landed on her left buttocks. Patient states since then the area is sore and so she decided to come in today to get it checked out. Patient denies any head trauma patient denies any neck trauma. Patient Nuys any upper extremity trauma. Patient has any chest or back pain. Patient states she is able to ambulate. Patient's only complaint is the lateral aspect of her left buttocks. - Related Data Home Medications Medication Instructions Recorded Confirmed ALPRAZolam [Xanax] 0.25 mg PO DAILY PRN 01/28/22 01/28/22 Aspirin EC [Ecotrin Low Dose] 81 mg PO DAILY 01/28/22 01/28/22 Carbidopa-Levodopa 10-100 mg 1 tab PO QID 01/28/22 01/28/22 [Sinemet 10-100 mg] Diphenox-Atrop 2.5-0.025 mg 1 tab PO TID 01/28/22 01/28/22 [Lomotil] Escitalopram [Lexapro] 10 mg PO DAILY 01/28/22 01/28/22 HYDROcodone/APAP 5-325MG [[place] 1 tab PO Q4HR PRN 01/28/22 01/28/22 5-325] Levothyroxine Sodium [Synthroid] 88 mcg PO DAILY 01/28/22 01/28/22 Montelukast [Singulair] 10 mg PO DAILY 01/28/22 01/28/22 Naproxen 500 mg PO BID PRN 01/28/22 01/28/22 Propranolol HCl [Inderal] 60 mg PO BID 01/28/22 01/28/22 Rosuvastatin [Crestor] 20 mg PO HS 01/28/22 01/28/22 metFORMIN HCL 500 mg PO BID 01/28/22 01/28/22 Previous Rx's Medication Instructions Recorded lisinopriL [Zestril] 10 mg PO DAILY #30 tab 01/29/22 Allergies Allergy/AdvReac Type Severity Reaction Status Date / Time No Known Allergies Allergy Verified 01/28/22 07:29 Review of Systems ROS Statement: Those systems with pertinent positive or pertinent negative responses have been documented in the HPI. ROS Other: All systems not noted in ROS Statement are negative. Past Medical History Past Medical History: Atrial Fibrillation, CVA/TIA, Dementia, Diabetes Mellitus, Hyperlipidemia, Hypertension, Musculoskeletal Disorder, Thyroid Disorder, Vascular Disorder Additional Past Medical History / Comment(s): NIDDM type II, parkinson's disesase, murmur, multiple CVAs/some L sided weakness, told strokes caused some dementia, PVD/bilateral caratid surgery, hypothyroid, recent L humurus fracture (pt is L handed). History of Any Multi-Drug Resistant Organisms: None Reported Past Surgical History: Back Surgery, Hysterectomy Additional Past Surgical History / Comment(s): Bilateral caratid endartectomies, back surgery, cataract removals. Past Anesthesia/Blood Transfusion Reactions: No Reported Reaction Past Psychological History: Anxiety, Depression Smoking Status: Never smoker Past Alcohol Use History: None Reported Past Drug Use History: None Reported - Past Family History Father Additional Family Medical History / Comment(s): Alcoholism Mother Family Medical History: Diabetes Mellitus Additional Family Medical History / Comment(s): Mother when pt was 16 yrs old. General Exam - General Exam Comments Initial Comments: GENERAL: Patient is well-developed and well-nourished. Patient is nontoxic and well- hydrated and is in mild distress. ENT: Neck is soft and supple. No significant lymphadenopathy is noted. Oropharynx is clear. Moist mucous membranes. Neck has full range of motion without eliciting any pain. EYES: The sclera were anicteric and conjunctiva were pink and moist. Extraocular movements were intact and pupils were equal round and reactive to light. Eyelids were unremarkable. PULMONARY: Unlabored respirations. Good breath sounds bilaterally. No audible rales rhonchi or wheezing was noted. CARDIOVASCULAR: There is a regular rate and rhythm without any murmurs gallops or rubs. ABDOMEN: Soft and nontender with normal bowel sounds. SKIN: Patient has a bruise on the left buttocks NEUROLOGIC: Patient is alert and oriented x3. Cranial nerves II through XII are grossly intact. Motor and sensory are also intact. Normal speech, volume and content. Symmetrical smile. MUSCULOSKELETAL: Normal extremities with adequate strength and full range of motion. Patient has full range of motion of the left and right hip however there is some tenderness with external rotation. Patient does have a bruise on the left buttocks region LYMPHATICS: No significant lymphadenopathy is noted PSYCHIATRIC: Normal psychiatric evaluation. Limitations: no limitations Course Vital Signs 01/20/24 12:45 Temperature 98.7 F Pulse Rate 76 Respiratory 18 Rate Blood Pressure 167/81 O2 Sat by Pulse 96 Oximetry Medical Decision Making - Medical Decision Making Was pt. sent in by a medical professional or institution (, PA, CHAMBER [employer], urgent care, hospital, or longterm...) When possible be specific @ -No Did you speak to anyone other than the patient for history (EMS, parent, family, police, friend...)? What history was obtained from this source @ -EMS gave some of the history Did you review nursing and triage notes (agree or disagree)? Why? @ -I reviewed and agree with nursing and triage notes Were old charts reviewed (outside hosp., previous admission, EMS record, old EKG, old radiological studies, urgent care reports/EKG's, longterm records)? Report findings @ -No old charts were reviewed Differential Diagnosis (chest pain, altered mental status, abdominal pain women, abdominal pain men, vaginal bleeding, weakness, fever, dyspnea, syncope, he adache, dizziness, GI bleed, back pain, seizure, CVA, palpatations, mental health, musculoskeletal)? @ -Differential Musculoskeletal Muscular strain, contusion, ligament sprain, fracture, arthritis, septic arthritis, bursitis, cellulitis, muscle spasm, nerve compression, DVT, arterial occlusion, herpes zoster, electrolyte abnormality, tumor.... This is not meant to be in all inclusive list EKG interpreted by me (3pts min.). @ -As above X-rays interpreted by me (1pt min.). @ -X-ray of the hip and pelvis show no acute abnormality or dislocation CT interpreted by me (1pt min.). @ -None done U/S interpreted by me (1pt. min.). @ -None done What testing was considered but not performed or refused? (CT, X-rays, U/S, labs)? Why? @ -None What meds were considered but not given or refused? Why? @ -None Did you discuss the management of the patient with other professionals (professionals i.e. , PA, CHAMBER MAGIST[employer], lab, RT, psych nurse, professor of social work, talent development analyst, teacher, juvenile detention officer, case aide)? Give summary @ -No Was smoking cessation discussed for >3mins.? @ -No Was critical care preformed (if so, how long)? @ -No Were there social determinants of health that impacted care today? How? (Homelessness, low income, unemployed, alcoholism, drug addiction, transportation, low edu. Level, literacy, decrease access to med. care, [facility], rehab)? @ -No Was there de-escalation of care discussed even if they declined (Discuss DNR or withdrawal of care, Hospice)? DNR status @ -No What co-morbidities impacted this encounter? (DM, HTN, Smoking, COPD, CAD, Cancer, CVA, ARF, Chemo, Hep., AIDS, mental health diagnosis, sleep apnea, morbid obesity)? @ -None Was patient admitted / discharged? Hospital course, mention meds given and route, prescriptions, significant lab abnormalities, going to OR and other pertinent info. @ -Patient received a Toradol shot while in the emergency department and was able to ambulate Undiagnosed new problem with uncertain prognosis? @ -No Drug Therapy requiring intensive monitoring for toxicity (Heparin, Nitro, Insulin, Cardizem)? @ -No Were any procedures done? @ -No Diagnosis/symptom? @ -Contusion buttocks Acute, or Chronic, or Acute on Chronic? @ -Acute Uncomplicated (without systemic symptoms) or Complicated (systemic symptoms)? @ -Uncomplicated Side effects of treatment? @ -No Exacerbation, Progression, or Severe Exacerbation? @ -No Poses a threat to life or bodily function? How? (Chest pain, [place], [place], pneumonia, PE, COPD, DKA, ARF, appy, cholecystitis, CVA, Diverticulitis, Homicidal, Suicidal, threat to staff... and all critical care pts) @ -No Disposition Clinical Impression: Contusion of buttock Disposition: HOME SELF-CARE Instructions (If sedation given, give patient instructions): Contusion in Adults (ED) Is patient prescribed a controlled substance at d/c from ED?: No Referrals: Selwyn Reddy MD [Primary Care Provider] - 1-2 days Time of Disposition: 13:30
[2024-01-20] MEDS: KETOROLAC 15 MG/ML 1 ML VIAL IM STA (12:55)
[2024-01-20 13:21] VITALS: RESP 18; TEMP 98.7
--- NOTE | 2024-01-20 13:21 | XR ---
EXAMINATION TYPE: XR Hip LT and AP Pelvis DATE OF EXAM: 01/20/2024 CLINICAL HISTORY: pain TECHNIQUE: AP and frogleg views of the left hip are obtained. In view of the pelvis COMPARISON: None. FINDINGS: There is no acute fracture/dislocation evident. The joint space appears mildly narrowed. The overlying soft tissue appears unremarkable. IMPRESSION: 1. There is no acute fracture or dislocation.ICD 10 NO FRACTURE, INITIAL EVALUATION
[2024-01-20 14:31] VITALS: BP 124/76; PULSE 78
== END 2024-01-20 14:20 | disposition home or self-care (01) ==
LOC: EC 12:35
DX: S30.0XXA Contusion of lower back and pelvis, initial encounter (principal); E03.9 Hypothyroidism, unspecified; E11.36 Type 2 diabetes mellitus with diabetic cataract; E11.51 Type 2 diabetes mellitus with diabetic peripheral angiopathy without gangrene; E78.5 Hyperlipidemia, unspecified; I10 Essential (primary) hypertension; I48.91 Unspecified atrial fibrillation; F41.9 Anxiety disorder, unspecified; F32.A Depression, unspecified; Z79.84 Long term (current) use of oral hypoglycemic drugs; Z79.82 Long term (current) use of aspirin; Z79.890 Hormone replacement therapy; Z79.899 Other long term (current) drug therapy; Z86.73 Personal history of transient ischemic attack (TIA), and cerebral infarction without residual deficits; X58.XXXA Exposure to other specified factors, initial encounter
CPT/HCPCS: 73502; 99283; 96372; J1885

== ENCOUNTER → 2024-05-18 | Outpatient (CLI) | payer MEDICARE ==
--- NOTE | 2024-05-18 11:17 | CT ---
EXAMINATION TYPE: CT brain wo con CT DLP: 1047.1 mGycm, Automated exposure control for dose reduction was used. DATE OF EXAM: 05/18/2024 11:10 AM COMPARISON: Prior CT Brain from 01/28/2022 . CLINICAL INDICATION:Female, 83 years old with history of S09.90XA HEAD TRAUMA R29.6 FALL S24.109A SPI NE TRA, head trauma, fall today TECHNIQUE: Brain: Multiple axial CT images of the brain were obtained without IV contrast. . Coronal and sagitta l reformats reviewed. FINDINGS: Brain: Extra-axial spaces: No abnormal extra-axial fluid collections. Ventricular system: Dilatation in proportion to cerebral atrophy. Cerebral parenchyma: Cerebral atrophy. No acute intraparenchymal hemorrhage or mass effect. The mckeon -white junction is well differentiated. Scattered hypoattenuating areas are seen within the white mat ter. Encephalomalacia identified with thin the right frontoparietal lobes, left frontal lobe, left o ccipital lobe, and left parietal lobe. Cerebellum: Unremarkable. Mass effect: No evidence of midline shift. Intracranial vasculature: Atherosclerotic calcifications of the intracranial vessels. Soft tissues: Normal. Calvarium/osseous structures: No depressed skull fracture. Paranasal sinuses and mastoid air cells: Clear Visualized orbits: Bilateral aphakia. Bilateral scleral calcifications. IMPRESSION: 1. No acute intracranial process. No significant change from prior examination. 2. Multiple old infarcts redemonstrated along with nonspecific white matter changes likely secondary to chronic microangiopathy.
--- NOTE | 2024-05-18 11:21 | CT ---
EXAMINATION TYPE: CT thoracic spine wo con CT DLP: 649.3 mGycm, Automated exposure control for dose reduction was used. DATE OF EXAM: 05/18/2024 11:10 AM COMPARISON: CT chest 01/28/2022, CT lumbar spine 08/27/2021. CLINICAL INDICATION:Female, 83 years old with history of S09.90XA HEAD TRAUMA R29.6 FALL S24.109A SPI NE TRA; PHH, fall today, thoracic trauma TECHNIQUE: Axial images of the thoracic spine were obtained without contrast. Coronal and sagittal re formats were performed. FINDINGS: The thoracic vertebral bodies have preserved heights and alignment. Mild dextrocurvature o f the thoracolumbar spine. Intervertebral discs and osseous structures have normal appearance. Mild degenerative disc disease at L1-L2. I do not see any evidence of extradural defects nor significant spinal canal narrowing at any thoraci c vertebral body level. Aortic valvular calcifications. Moderate coronary artery calcifications involving the LAD. IMPRESSION: No evidence of acute thoracic spinal fracture.
== END | disposition home or self-care (01) ==
LOC: RADCTMAIN 10:29
PROVIDERS: ATTEND Family Medicine
DX: S09.90XA Unspecified injury of head, initial encounter (principal); S24.109A Unspecified injury at unspecified level of thoracic spinal cord, initial encounter; R29.6 Repeated falls
CPT/HCPCS: 70450; 72128

== ENCOUNTER 2024-05-19 14:46 | Emergency (ER) | payer MEDICARE ==
--- NOTE | 2024-05-19 15:19 | ED ---
General Adult HPI - General Chief complaint: Nausea/Vomiting/Diarrhea Stated complaint: parkinson's Time Seen by Provider: 05/19/24 14:59 Source: patient, EMS Mode of arrival: EMS Limitations: no limitations - History of Present Illness Initial comments: This patient is an 83-year-old woman who presents to have evaluation related to her Parkinson's disease. The patient states that she has had worsening tremor over the past number of days. She reports that she also has had a little bit of stress recently. She has not had any change in medications. She denies feeling as if she has an infection. She states that she did have a fall last week rela brandan to the Parkinson's disease but she was seen by her primary physician and had x-ray. She denies pain currently. -: days(s) Severity scale (1-10): 0 Consistency: constant Improves with: none Worsens with: none Associated Symptoms: nausea/vomiting Treatments Prior to Arrival: none - Related Data Home Medications Medication Instructions Recorded Confirmed ALPRAZolam [Xanax] 0.25 mg PO DAILY PRN 01/28/22 01/28/22 Aspirin EC [Ecotrin Low Dose] 81 mg PO DAILY 01/28/22 01/28/22 Carbidopa-Levodopa 10-100 mg 1 tab PO QID 01/28/22 01/28/22 [Sinemet 10-100 mg] Diphenox-Atrop 2.5-0.025 mg 1 tab PO TID 01/28/22 01/28/22 [Lomotil] Escitalopram [Lexapro] 10 mg PO DAILY 01/28/22 01/28/22 HYDROcodone/APAP 5-325MG [[place] 1 tab PO Q4HR PRN 01/28/22 01/28/22 5-325] Levothyroxine Sodium [Synthroid] 88 mcg PO DAILY 01/28/22 01/28/22 Montelukast [Singulair] 10 mg PO DAILY 01/28/22 01/28/22 Naproxen 500 mg PO BID PRN 01/28/22 01/28/22 Propranolol HCl [Inderal] 60 mg PO BID 01/28/22 01/28/22 Rosuvastatin [Crestor] 20 mg PO HS 01/28/22 01/28/22 metFORMIN HCL 500 mg PO BID 01/28/22 01/28/22 Previous Rx's Medication Instructions Recorded lisinopriL [Zestril] 10 mg PO DAILY #30 tab 01/29/22 Nitrofurantoin Monohyd/M-Cryst 100 mg PO Q12HR #6 cap 05/19/24 [Macrobid] Allergies Allergy/AdvReac Type Severity Reaction Status Date / Time No Known Allergies Allergy Verified 01/28/22 07:29 Review of Systems ROS Statement: Those systems with pertinent positive or pertinent negative responses have been documented in the HPI. ROS Other: All systems not noted in ROS Statement are negative. Constitutional: Denies: fever, chills, weakness Eyes: Denies: vision change ENT: Denies: throat pain, congestion Respiratory: Denies: cough, dyspnea Cardiovascular: Denies: chest pain, edema, syncope Gastrointestinal: Reports: nausea. Denies: abdominal pain, vomiting, diarrhea Genitourinary: Denies: dysuria, hematuria Musculoskeletal: Denies: back pain Skin: Denies: rash Neurological: Denies: headache, weakness, numbness Past Medical History Past Medical History: Atrial Fibrillation, CVA/TIA, Dementia, Diabetes Mellitus, Hyperlipidemia, Hypertension, Musculoskeletal Disorder, Thyroid Disorder, Vascular Disorder Additional Past Medical History / Comment(s): NIDDM type II, parkinson's disesase, murmur, multiple CVAs/some L sided weakness, told strokes caused some dementia, PVD/bilateral caratid surgery, hypothyroid, recent L humurus fracture (pt is L handed). History of Any Multi-Drug Resistant Organisms: None Reported Past Surgical History: Back Surgery, Hysterectomy Additional Past Surgical History / Comment(s): Bilateral caratid endartectomies, back surgery, cataract removals. Past Anesthesia/Blood Transfusion Reactions: No Reported Reaction Past Psychological History: Anxiety, Depression Smoking Status: Never smoker Past Alcohol Use History: None Reported Past Drug Use History: None Reported - Past Family History Father Additional Family Medical History / Comment(s): Alcoholism Mother Family Medical History: Diabetes Mellitus Additional Family Medical History / Comment(s): Mother when pt was 16 yrs old. General Exam Limitations: no limitations General appearance: alert, in no apparent distress Head exam: Present: atraumatic, normocephalic Eye exam: Present: normal appearance. Absent: scleral icterus, conjunctival injection ENT exam: Present: normal oropharynx Neck exam: Present: normal inspection Respiratory exam: Present: normal lung sounds bilaterally. Absent: respiratory distress, wheezes, rales, rhonchi, stridor, accessory muscle use Cardiovascular Exam: Present: regular rate, normal rhythm, normal heart sounds. Absent: systolic murmur, diastolic murmur, rubs, gallop GI/Abdominal exam: Present: soft. Absent: distended, tenderness, guarding, rebound, rigid, mass Extremities exam: Present: normal inspection, normal capillary refill. Absent: pedal edema, calf tenderness Back exam: Present: normal inspection. Absent: CVA tenderness (R), CVA tenderness (L) Neurological exam: Present: alert, oriented X3, motor sensory deficit. Absent: CN II-XII intact Skin exam: Present: warm, dry, intact, normal color. Absent: rash Course Vital Signs 05/19/24 05/19/24 05/19/24 14:49 16:34 18:20 Temperature 98.5 F 98.0 F Pulse Rate 72 62 68 Respiratory 17 19 19 Rate Blood Pressure 132/50 131/51 142/59 O2 Sat by Pulse 95 98 98 Oximetry EKG Findings - EKG Results: EKG: interpreted by ERMD, sinus rhythm (Rate 68 bpm), normal axis, normal QRS - Blocks, [place], Hypertrophy, ST Abn: AV and intraventricular conduction: 1 AV block Medical Decision Making - Medical Decision Making Was pt. sent in by a medical professional or institution (HARRY Genao, SOIL SPECIALIST, urgent care, hospital, or half-way...) When possible be specific @ -[No] Did you speak to anyone other than the patient for history (EMS, parent, family, police, friend...)? What history was obtained from this source @ -[Family did provide some history Did you review nursing and triage notes (agree or disagree)? Why? @ -[I reviewed and agree with nursing and triage notes] Were old charts reviewed (outside hosp., previous admission, EMS record, old EKG, old radiological studies, urgent care reports/EKG's, half-way records)? Report findings @ -[No old charts were reviewed] Differential Diagnosis (chest pain, altered mental status, abdominal pain women, abdominal pain men, vaginal bleeding, weakness, fever, dyspnea, syncope, headache, dizziness, GI bleed, back pain, seizure, CVA, palpatations, mental health, musculoskeletal)? @ -[Differential Weakness: Hypoglycemia, shock, sepsis, hyponatremia, anemia, infection, HI, ETOH, adverse medicine reaction, overdose, stroke, this is not meant to be an all-inclusive list. EKG interpreted by me (3pts min.). @ -[I interpreted as above] X-rays interpreted by me (1pt min.). @ -[None done] CT interpreted by me (1pt min.). @ -[None done] U/S interpreted by me (1pt. min.). @ -[None done] What testing was considered but not performed or refused? (CT, X-rays, U/S, labs)? Why? @ -[None] What meds were considered but not given or refused? Why? @ -[None] Did you discuss the management of the patient with other professionals (professionals i.e. , PA, SOIL SPECIALIST, lab, RT, psych nurse, social media manager, slot service specialist, teacher, bank secrecy act officer, casework supervisor)? Give summary @ -[No] Was smoking cessation discussed for >3mins.? @ -[No] Was critical care preformed (if so, how long)? @ -[No] Were there social determinants of health that impacted care today? How? (Homelessness, low income, unemployed, alcoholism, drug addiction, transportation, low edu. Level, literacy, decrease access to med. care, half-way, rehab)? @ -[No] Was there de-escalation of care discussed even if they declined (Discuss DNR or withdrawal of care, Hospice)? DNR status @ -[No] What co-morbidities impacted this encounter? (DM, HTN, Smoking, COPD, CAD, Cancer, CVA, ARF, Chemo, Hep., AIDS, mental health diagnosis, sleep apnea, morbid obesity)? @ -[Parkinson's disease Was patient admitted / discharged? Hospital course, mention meds given and route, prescriptions, significant lab abnormalities, going to OR and other pertinent info. @ -[Patient is an 83-year-old woman with Parkinson's disease who presents to evaluation for worsening of her underlying symptoms. Patient having some stress at home which may contribute. Also does have urinary tract infection. At the end of workup patient states she would like to try going home with medication. Discussed appropriate further care and follow-up Undiagnosed new problem with uncertain prognosis? @ -[No] Drug Therapy requiring intensive monitoring for toxicity (Heparin, Nitro, Insulin, Cardizem)? @ -[No] Were any procedures done? @ -[No] Diagnosis/symptom? @ -[ generalized weakness Parkinson's disease, chronic Urinary tract infection Acute, or Chronic, or Acute on Chronic? @ -[default] Uncomplicated (without systemic symptoms) or Complicated (systemic symptoms)? @ -[Complicated by generalized weakness Side effects of treatment? @ -[No] Exacerbation, Progression, or Severe Exacerbation? @ -[No] Poses a threat to life or bodily function? How? (Chest pain, USA, HI, pneumonia, PE, COPD, DKA, ARF, appy, cholecystitis, CVA, Diverticulitis, Homicidal, Suicidal, threat to staff... and all critical care pts) @ -[No] - Lab Data Result diagrams: 05/19/24 15:36 05/19/24 15:36 Lab Results 05/19/24 05/19/24 05/19/24 Range/Units 15:36 15:36 15:36 WBC 8.2 (3.8-10.6) k/uL RBC 4.67 (3.80-5.40) m/uL Hgb 13.8 (11.4-16.0) gm/dL Hct 42.8 (34.0-46.0) % MCV 91.6 (80.0-100.0) fL MCH 29.6 (25.0-35.0) pg MCHC 32.3 (31.0-37.0) g/dL RDW 13.0 (11.5-15.5) % Plt Count 214 (150-450) k/uL MPV 8.3 Neutrophils % 65 % Lymphocytes % 21 % Monocytes % 8 % Eosinophils % 3 % Basophils % 1 % Neutrophils # 5.3 (1.3-7.7) k/uL Lymphocytes # 1.8 (1.0-4.8) k/uL Monocytes # 0.6 (0-1.0) k/uL Eosinophils # 0.2 (0-0.7) k/uL Basophils # 0.1 (0-0.2) k/uL Sodium 140 (137-145) mmol/L Potassium 4.4 (3.5-5.1) mmol/L Chloride 107 (98-107) mmol/L Carbon Dioxide 26 (22-30) mmol/L Anion Gap 7 mmol/L BUN 28 H (7-17) mg/dL Creatinine 0.85 (0.52-1.04) mg/dL Est GFR (CKD-EPI)AfAm 74 (>60 ml/min/1.73 sqM) Est GFR (CKD-EPI)NonAf 64 (>60 ml/min/1.73 sqM) Glucose 149 H (74-99) mg/dL Plasma Lactic Acid Jose (0.7-2.0) mmol/L Calcium 9.8 (8.4-10.2) mg/dL Magnesium 1.9 (1.6-2.3) mg/dL Total Bilirubin 0.7 (0.2-1.3) mg/dL AST 29 (14-36) U/L ALT 7 (4-34) U/L Alkaline Phosphatase 67 (38-126) U/L Total Protein 7.2 (6.3-8.2) g/dL Albumin 4.4 (3.5-5.0) g/dL Urine Color Colorless Urine Appearance Clear (Clear) Urine pH 6.5 (5.0-8.0) Ur Specific [place] 1.025 (1.001-1.035) Urine Protein Negative (Negative) Urine Glucose (UA) 4+ H (Negative) Urine Ketones Negative (Negative) Urine Blood Negative (Negative) Urine Nitrite Negative (Negative) Urine Bilirubin Negative (Negative) Urine Urobilinogen <2.0 (<2.0) mg/dL Ur Leukocyte Esterase Moderate H (Negative) Urine RBC 4 (0-5) /hpf Urine WBC 23 H (0-5) /hpf Ur Squamous Epith Cells 3 (0-4) /hpf 05/19/24 Range/Units 15:36 WBC (3.8-10.6) k/uL RBC (3.80-5.40) m/uL Hgb (11.4-16.0) gm/dL Hct (34.0-46.0) % MCV (80.0-100.0) fL MCH (25.0-35.0) pg MCHC (31.0-37.0) g/dL RDW (11.5-15.5) % Plt Count (150-450) k/uL MPV Neutrophils % % Lymphocytes % % Monocytes % % Eosinophils % % Basophils % % Neutrophils # (1.3-7.7) k/uL Lymphocytes # (1.0-4.8) k/uL Monocytes # (0-1.0) k/uL Eosinophils # (0-0.7) k/uL Basophils # (0-0.2) k/uL Sodium (137-145) mmol/L Potassium (3.5-5.1) mmol/L Chloride (98-107) mmol/L Carbon Dioxide (22-30) mmol/L Anion Gap mmol/L BUN (7-17) mg/dL Creatinine (0.52-1.04) mg/dL Est GFR (CKD-EPI)AfAm (>60 ml/min/1.73 sqM) Est GFR (CKD-EPI)NonAf (>60 ml/min/1.73 sqM) Glucose (74-99) mg/dL Plasma Lactic Acid Jose 1.9 (0.7-2.0) mmol/L Calcium (8.4-10.2) mg/dL Magnesium (1.6-2.3) mg/dL Total Bilirubin (0.2-1.3) mg/dL AST (14-36) U/L ALT (4-34) U/L Alkaline Phosphatase (38-126) U/L Total Protein (6.3-8.2) g/dL Albumin (3.5-5.0) g/dL Urine Color Urine Appearance (Clear) Urine pH (5.0-8.0) Ur Specific [place] (1.001-1.035) Urine Protein (Negative) Urine Glucose (UA) (Negative) Urine Ketones (Negative) Urine Blood (Negative) Urine Nitrite (Negative) Urine Bilirubin (Negative) Urine Urobilinogen (<2.0) mg/dL Ur Leukocyte Esterase (Negative) Urine RBC (0-5) /hpf Urine WBC (0-5) /hpf Ur Squamous Epith Cells (0-4) /hpf Disposition Clinical Impression: Urinary tract infection Disposition: HOME SELF-CARE Condition: Good Instructions (If sedation given, give patient instructions): Urinary Tract Infection in Women (ED) Prescriptions: Nitrofurantoin Monohyd/M-Cryst [Macrobid] 100 mg PO Q12HR #6 cap Is patient prescribed a controlled substance at d/c from ED?: No Referrals: Selwyn Reddy MD [Primary Care Provider] - 1-2 days
[2024-05-19 15:57] LABS: Basophils # (A) 0.1 k/uL (0-0.2); Basophils % (A) 1 %; Eosinophils # (A) 0.2 k/uL (0-0.7); Eosinophils % (A) 3 %; HCT 42.8 % (34.0-46.0); HGB 13.8 gm/dL (11.4-16.0); Lymphocytes # (A) 1.8 k/uL (1.0-4.8); Lymphocytes % (A) 21 %; MCH 29.6 pg (25.0-35.0); MCHC 32.3 g/dL (31.0-37.0); MCV 91.6 fL (80.0-100.0); Mean Platelet Volume 8.3; Monocytes # (A) 0.6 k/uL (0-1.0); Monocytes % (A) 8 %; Neutrophils # (A) 5.3 k/uL (1.3-7.7); Neutrophils % (A) 65 %; Platelet Count 214 k/uL (150-450); RBC 4.67 m/uL (3.80-5.40); WBC 8.2 k/uL (3.8-10.6)
[2024-05-19 16:03] LABS: Appearance,Urine Clear (Clear); Bilirubin,Urine Negative (Negative); Blood,Urine Negative (Negative); Color,Urine Colorless; Glucose,Urine (UA) 4+ (Negative); Ketones,Urine Negative (Negative); Leukocyte Esterase,Urine Moderate (Negative); Nitrite,Urine Negative (Negative); PH, Urine 6.5 (5.0-8.0); Protein,Urine Negative (Negative); RBC,Urine 4 /hpf (0-5); Specific Gravity,Urine 1.025 (1.001-1.035); Squamous Epithelial Cell,Urine 3 /hpf (0-4); Urobilinogen,Urine <2.0 mg/dL (<2.0); WBC,Urine 23 /hpf (0-5)
[2024-05-19 16:07] LABS: ALT 7 U/L (4-34); AST 29 U/L (14-36); African American GFR (CKD) 74 (>60 ml/min/1.73 sqM); Albumin 4.4 g/dL (3.5-5.0); Alkaline Phosphatase 67 U/L (38-126); Anion Gap 7 mmol/L; Blood Urea Nitrogen 28 mg/dL (7-17); Calcium 9.8 mg/dL (8.4-10.2); Carbon Dioxide 26 mmol/L (22-30); Chloride 107 mmol/L (98-107); Glucose 149 mg/dL (74-99); Magnesium 1.9 mg/dL (1.6-2.3); Non-African American GFR(CKD) 64 (>60 ml/min/1.73 sqM); Potassium 4.4 mmol/L (3.5-5.1); Sodium 140 mmol/L (137-145); Total Bilirubin 0.7 mg/dL (0.2-1.3); Total Protein 7.2 g/dL (6.3-8.2)
[2024-05-19 16:37] VITALS: RESP 19
[2024-05-19] MEDS: SODIUM CHLORIDE 0.9% 1,000 ML IV ONE (17:05)
[2024-05-19] MEDS: NITROFURANTOIN MONOHYD/M-CRYST 100 MG CAP PO STA (18:13)
[2024-05-19 18:33] VITALS: BP 142/59; PULSE 68; TEMP 98
== END 2024-05-19 18:33 | disposition home or self-care (01) ==
LOC: EC 14:46
DX: N39.0 Urinary tract infection, site not specified (principal); Z86.73 Personal history of transient ischemic attack (TIA), and cerebral infarction without residual deficits
CPT/HCPCS: 36415; 80053; 81001; 83605; 83735; 85025; 93005; 96360; 99284

== ENCOUNTER 2024-07-17 17:35 | Emergency (ER) | payer MEDICARE ==
--- NOTE | 2024-07-17 18:31 | ED ---
General Adult HPI - General Chief complaint: Fall Stated complaint: fall/back pain Time Seen by Provider: 07/17/24 17:35 Source: patient, EMS, RN notes reviewed, old records reviewed Mode of arrival: EMS Limitations: no limitations - History of Present Illness Initial comments: This is an 83-year-old female who presents to the emergency department after she had fallen down. Patient states she hurt her lower back on the right. Patient states it does hurt to move and twist. Patient states she did not hit her head she is not on any blood thinners. Patient does state the right side of her neck does hurt as well. Patient denies any chest pain however her posterior rib cage is an area she points to as being tender. Patient denies any extremity pain. Patient states she is she fell because she slipped. - Related Data Home Medications Medication Instructions Recorded Confirmed ALPRAZolam [Xanax] 0.25 mg PO DAILY PRN 01/28/22 01/28/22 Aspirin EC [Ecotrin Low Dose] 81 mg PO DAILY 01/28/22 01/28/22 Carbidopa-Levodopa 10-100 mg 1 tab PO QID 01/28/22 01/28/22 [Sinemet 10-100 mg] Diphenox-Atrop 2.5-0.025 mg 1 tab PO TID 01/28/22 01/28/22 [Lomotil] Escitalopram [Lexapro] 10 mg PO DAILY 01/28/22 01/28/22 HYDROcodone/APAP 5-325MG [[place] 1 tab PO Q4HR PRN 01/28/22 01/28/22 5-325] Levothyroxine Sodium [Synthroid] 88 mcg PO DAILY 01/28/22 01/28/22 Montelukast [Singulair] 10 mg PO DAILY 01/28/22 01/28/22 Naproxen 500 mg PO BID PRN 01/28/22 01/28/22 Propranolol HCl [Inderal] 60 mg PO BID 01/28/22 01/28/22 Rosuvastatin [Crestor] 20 mg PO HS 01/28/22 01/28/22 metFORMIN HCL 500 mg PO BID 01/28/22 01/28/22 Previous Rx's Medication Instructions Recorded lisinopriL [Zestril] 10 mg PO DAILY #30 tab 01/29/22 Nitrofurantoin Monohyd/M-Cryst 100 mg PO Q12HR #6 cap 05/19/24 [Macrobid] Allergies Allergy/AdvReac Type Severity Reaction Status Date / Time No Known Allergies Allergy Verified 07/17/24 17:50 Review of Systems ROS Statement: Those systems with pertinent positive or pertinent negative responses have been documented in the HPI. ROS Other: All systems not noted in ROS Statement are negative. Past Medical History Past Medical History: Atrial Fibrillation, CVA/TIA, Dementia, Diabetes Mellitus, Hyperlipidemia, Hypertension, Musculoskeletal Disorder, Thyroid Disorder, Vascular Disorder Additional Past Medical History / Comment(s): NIDDM type II, parkinson's disesase, murmur, multiple CVAs/some L sided weakness, told strokes caused some dementia, PVD/bilateral caratid surgery, hypothyroid, recent L humurus fracture (pt is L handed). History of Any Multi-Drug Resistant Organisms: None Reported Past Surgical History: Back Surgery, Hysterectomy Additional Past Surgical History / Comment(s): Bilateral caratid endartectomies, back surgery, cataract removals. Past Anesthesia/Blood Transfusion Reactions: No Reported Reaction Past Psychological History: Anxiety, Depression Smoking Status: Never smoker Past Alcohol Use History: None Reported Past Drug Use History: None Reported - Past Family History Father Additional Family Medical History / Comment(s): Alcoholism Mother Family Medical History: Diabetes Mellitus Additional Family Medical History / Comment(s): Mother when pt was 16 yrs old. General Exam - General Exam Comments Initial Comments: GENERAL: Patient is well-developed and well-nourished. Patient is nontoxic and well- hydrated and is in mild distress. ENT: Neck is soft and supple. No significant lymphadenopathy is noted. Oropharynx is clear. Moist mucous membranes. I remove the patient's c-collar and she does have some tenderness on the right side in the area of trapezius muscle EYES: The sclera were anicteric and conjunctiva were pink and moist. Extraocular movements were intact and pupils were equal round and reactive to light. Eyelids were unremarkable. PULMONARY: Unlabored respirations. Good breath sounds bilaterally. No audible rales rhonchi or wheezing was noted. CARDIOVASCULAR: There is a regular rate and rhythm without any murmurs gallops or rubs. Patient has some tenderness in the lower right rib cage area posteriorly. Patient also has some tenderness in the lower back on the right ABDOMEN: Soft and nontender with normal bowel sounds. No palpable organomegaly was noted. There is no palpable pulsatile mass. SKIN: Skin is clear with no lesions or rashes and otherwise unremarkable. NEUROLOGIC: Patient is alert and oriented x3. Cranial nerves II through XII are grossly intact. Motor and sensory are also intact. Normal speech, volume and content. Symmetrical smile. MUSCULOSKELETAL: Normal extremities with adequate strength and full range of motion. No lower extremity swelling or edema. No calf tenderness. LYMPHATICS: No significant lymphadenopathy is noted PSYCHIATRIC: Normal psychiatric evaluation. Limitations: no limitations Course Vital Signs 07/17/24 07/17/24 17:39 19:22 Temperature 97.9 F Pulse Rate 67 63 Respiratory 16 16 Rate Blood Pressure 122/60 115/76 O2 Sat by Pulse 95 95 Oximetry Medical Decision Making - Medical Decision Making Was pt. sent in by a medical professional or institution (, [facility]Y, COLLATING MACHINE OPERATOR, urgent care, hospital, or fdc...) When possible be specific @ -No Did you speak to anyone other than the patient for history (EMS, parent, family, police, friend...)? What history was obtained from this source @ -No Did you review nursing and triage notes (agree or disagree)? Why? @ -I reviewed and agree with nursing and triage notes Were old charts reviewed (outside hosp., previous admission, EMS record, old E KG, old radiological studies, urgent care reports/EKG's, fdc records)? Report findings @ -No old charts were reviewed Differential Diagnosis? @ -Differential Musculoskeletal Muscular strain, contusion, ligament sprain, fracture, arthritis, septic arthritis, bursitis, cellulitis, muscle spasm, nerve compression, DVT, arterial occlusion, herpes zoster, electrolyte abnormality, tumor.... This is not meant to be in all inclusive list EKG interpreted by me (3pts min.). @ -As above X-rays interpreted by me (1pt min.). @ -X-ray of the chest showed no acute abnormality. X-ray of the lumbar spine showed no acute abnormality. CT interpreted by me (1pt min.). @ -CT of the C-spine showed no acute abnormality U/S interpreted by me (1pt. min.). @ -None done What testing was considered but not performed or refused? (CT, X-rays, U/S, labs)? Why? @ -None What meds were considered but not given or refused? Why? @ -None Did you discuss the management of the patient with other professionals (saba castro i.e. , PA, COLLATING MACHINE OPERATOR, lab, RT, psych nurse, social research assistant, apprentice photographer, teacher, police patrol officer, caser in)? Give summary @ -No Was smoking cessation discussed for >3mins.? @ -No Was critical care preformed (if so, how long)? @ -No Were there social determinants of health that impacted care today? How? (Homelessness, low income, unemployed, alcoholism, drug addiction, transportation, low edu. Level, literacy, decrease access to med. care, intermediate, rehab)? @ -No Was there de-escalation of care discussed even if they declined (Discuss DNR or withdrawal of care, Hospice)? DNR status @ -No What co-morbidities impacted this encounter? (DM, HTN, Smoking, COPD, CAD, Cancer, CVA, ARF, Chemo, Hep., AIDS, mental health diagnosis, sleep apnea, morbid obesity)? @ -None Was patient admitted / discharged? Hospital course, mention meds given and route, prescriptions, significant lab abnormalities, going to OR and other pertinent info. @ -Patient received Toradol in the emergency department and was feeling somewhat better. Patient had no acute abnormalities noted on the CAT scan or x-rays patient had no other complaints at this time Undiagnosed new problem with uncertain prognosis? @ -No Drug Therapy requiring intensive monitoring for toxicity (Heparin, Nitro, Insulin, Cardizem)? @ -No Were any procedures done? @ -No Diagnosis/symptom? @ -Cervical strain Acute, or Chronic, or Acute on Chronic? @ -Acute Uncomplicated (without systemic symptoms) or Complicated (systemic symptoms)? @ -Uncomplicated Side effects of treatment? @ -No Exacerbation, Progression, or Severe Exacerbation? @ -No Poses a threat to life or bodily function? How? (Chest pain, USA, OR, pneumonia, PE, COPD, DKA, ARF, appy, cholecystitis, CVA, Diverticulitis, Homicidal, Suicidal, threat to staff... and all critical care pts) @ -No Diagnosis/symptom? @ -Lumbosacral spine strain Acute, or Chronic, or Acute on Chronic? @ -Acute Uncomplicated (without systemic symptoms) or Complicated (systemic symptoms)? @ -Uncomplicated Side effects of treatment? @ -None Exacerbation, Progression, or Severe Exacerbation] @ -No Poses a threat to life or bodily function? @ -No Diagnosis/symptom? @ -Fall Acute, or Chronic, or Acute on Chronic? @ -Acute Uncomplicated (without systemic symptoms) or Complicated (systemic symptoms)? @ -Uncomplicated Side effects of treatment? @ -None Exacerbation, Progression, or Severe Exacerbation] @ -No Poses a threat to life or bodily function? @ -No Disposition Clinical Impression: Fall, Chest wall pain, Lumbar strain, Cervical strain Disposition: HOME SELF-CARE Condition: Good Instructions (If sedation given, give patient instructions): Fall Prevention (ED), Cervical Strain (ED), Low Back Strain (ED) Additional Instructions: Patient should take Motrin or Advil as needed for pain. Patient could also take Tylenol in addition to those for pain Is patient prescribed a controlled substance at d/c from ED?: No Referrals: Selwyn Reddy MD [Primary Care Provider] - 1-2 days Time of Disposition: 20:59
[2024-07-17 19:23] VITALS: PULSE 63
[2024-07-17] MEDS: KETOROLAC 15 MG/ML 1 ML VIAL IM STA (19:54)
--- NOTE | 2024-07-17 20:04 | CT ---
EXAMINATION TYPE: CT cervical spine wo con CT DLP: 251.5 mGycm, Automated exposure control for dose reduction was used. DATE OF EXAM: 07/17/2024 7:39 PM COMPARISON: 01/03/2022. CLINICAL INDICATION: Female, 83 years old with history of Fall; [facility], Fall TECHNIQUE: Axial CT images from the skull base to the inferior aspect of T2 we obtained without intra venous contrast. Coronal and sagittal reformatted images were also reviewed. Contrast used: mL of , (if blank None) Oral contrast used: (if blank None) FINDINGS: Fracture: None. Osseous structures: Multilevel degenerative disc disease changes with endplate spurring and disc oste ophyte complex's. Vertebral alignment: Alignment within normal limits. Spinal canal/Neural Foramina: No evidence of significant spinal canal narrowing. No evidence for sign ificant neural foraminal stenosis. Neck soft tissues: Prevertebral soft tissues are within normal limits. Other: The airway is patent. The lung apices are clear. IMPRESSION: 1. No evidence of cervical spine fracture. 2. Moderate multilevel degenerative disc disease.
--- NOTE | 2024-07-17 20:36 | XR ---
EXAMINATION TYPE: XR chest 2V DATE OF EXAM: 07/17/2024 8:29 PM CLINICAL INDICATION: Female, 83 years old with history of Difficulty breathing ; [facility] COMPARISON: 01/28/2022 TECHNIQUE: XR chest 2V Frontal view of the chest. FINDINGS: Lungs/Pleura: There is no evidence of pleural effusion, focal consolidation, or pneumothorax. Pulmonary vascularity: Unremarkable. Heart/mediastinum: Cardiomediastinal silhouette is unremarkable. Musculoskeletal: No acute osseous pathology. Other findings: None Lines/Tubes: IMPRESSION: No acute cardiopulmonary disease/process.
--- NOTE | 2024-07-17 20:58 | XR ---
EXAMINATION TYPE: XR lumbosacral spine min 4V DATE OF EXAM: 07/17/2024 8:37 PM CLINICAL INDICATION: Female, 83 years old with history of Fall; [facility] COMPARISON: None TECHNIQUE: XR lumbosacral spine min 4V - Frontal, lateral , bilateral oblique and coned in L5-S1 late ral views of the spine. FINDINGS: No evidence of any acute osseous pathology. No evidence of loss of vertebral body height i s seen. There is scoliosis alignment of the lumbar vertebral bodies. Moderate scattered disc space na rrowing. Multilevel marginal osteophyte formation throughout the visualized spine. There is facet blair nt arthropathy throughout the spine. Scattered at least moderate neural foraminal stenosis. IMPRESSION: 1. No acute fracture. 2. 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
[2024-07-17 22:26] VITALS: BP 149/54; RESP 14; TEMP 97.7
== END 2024-07-17 23:58 | disposition home or self-care (01) ==
LOC: EC 17:35
DX: S16.1XXA Strain of muscle, fascia and tendon at neck level, initial encounter (principal); S39.012A Strain of muscle, fascia and tendon of lower back, initial encounter; R07.89 Other chest pain; W01.0XXA Fall on same level from slipping, tripping and stumbling without subsequent striking against object, initial encounter
CPT/HCPCS: 72110; 71046; 72125; 99284; 96372; J1885; 90472